=== PATIENT | female | born 1940 | race American Indian/Alaskan Native ===

== ENCOUNTER 2017-05-24 08:14 | Inpatient (IN) | payer MEDICARE ==
--- NOTE | 2017-05-24 09:15 | Cat Scan Report ---
CT HEAD WITHOUT CONTRAST: HISTORY: Neurological deficit. TECHNIQUE: Sequential CT images without contrast. FINDINGS: No comparison. Mild diffuse cortical volume loss and moderate nonspecific chronic white matter changes are identified. There are 2 areas of diminished attenuation concerning for ischemic infarcts. A 1.8 x 1.9 cm area of diminished attenuation is identified in the left occipital lobe on image 35. A similar appearing 1.4 cm area of diminished attenuation is identified in the posterior right cerebellar hemisphere on image 15. These may represent subacute ischemic insults. There is questionable hyperdensity within the basilar artery which could represent partial thrombosis. This could also represent a beam hardening artifact. There is no evidence for hemorrhage or mass. No extra axial fluid collection. Chronic lacunar infarcts in the right thalamus and posterior limb of the right internal capsule are noted. Chronic right sphenoid sinusitis is identified. The remaining sinuses and mastoid air cells are well-aerated. IMPRESSION: Volume loss and chronic white matter changes. Chronic lacunar infarcts in the right thalamus. There are 2 suspicious areas of diminished attenuation in the left occipital lobe and right cerebellar hemisphere concerning for subacute ischemia. No evidence for hemorrhage or obvious mass. These findings were discussed with Dr. Beasley in the emergency department at 0907 hrs.
[2017-05-24 09:20] LABS: Basophils # (Auto) 0.1 K/mm3 (0.0-0.1); Basophils % (Auto) 0.3 % (0.0-1.8); Eosinophils # (Auto) 0.5 K/mm3 (0.0-0.4); Eosinophils % (Auto) 2.5 % (0.0-4.3); Lymphocytes # (Auto) 0.7 K/mm3 (1.2-5.4); Lymphocytes % (Auto) 3.5 % (13.4-35.0); Mean Corpuscular HGB Conc 30 % (30-34); Mean Corpuscular Volume 87 fl (79-97); Monocytes # (Auto) 1.4 K/mm3 (0.0-0.8); Monocytes % (Auto) 7.4 % (0.0-7.3); Platelet Count 146 K/mm3 (140-440); Red Blood Count 3.86 M/mm3 (3.65-5.03)
[2017-05-24 09:30] LABS: Hematocrit 33.5 % (30.3-42.9); Mean Corpuscular Hemoglobin 26 pg (28-32); Red Cell Distribution Width 22.4 % (13.2-15.2)
[2017-05-24 09:31] LABS: INR 1.11 (0.87-1.13)
[2017-05-24 09:32] LABS: Partial Thromboplastin Time 36.1 Sec. (24.2-36.6)
[2017-05-24 09:33] LABS: Calcium 9.3 mg/dL (8.4-10.2)
[2017-05-24 10:08] LABS: Chol/HDL Ratio 2.27 %
[2017-05-24] MEDS ORDERED: KCL 10MEQ/100ML 10 MEQ/100 ML BAG IV ONE (11:12)
--- NOTE | 2017-05-24 11:17 | Emergency Department Report ---
Chief Complaint: Neuro Symptoms/Deficit Stated Complaint: AMS Time Seen by Provider: 05/24/17 09:23 - Exam Vital Signs: Vital Signs 05/24/17 05/24/17 09:07 09:18 Temperature 98.2 F 98.2 F Pulse Rate 101 H 101 H Respiratory 22 22 Rate Blood Pressure 108/38 Blood Pressure 108/32 [Right] O2 Sat by Pulse 96 98 Oximetry MSE screening note: Focused history and physical exam performed. Due to findings the following was ordered: ED Medical Decision Making - Lab Data Result diagrams: 05/24/17 09:04 05/24/17 09:04 - EKG Data EKG shows normal: axis (nl), intervals, QRS complexes, ST-T waves Rate: tachycardia (atrial fib rvr rate 104) - EKG Data Interpretation: other (atrial fib with rvr) ED Disposition for MSE Clinical Impression: CVA (cerebral vascular accident), NSTEMI (non-ST elevated myocardial infarction ) Disposition: -09 OP ADMIT IP TO THIS HOSP Is pt being admited?: Yes Does the pt Need Aspirin: Yes Condition: Serious
--- NOTE | 2017-05-24 11:37 | History and Physical Report ---
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 Pt lethargic and unable to provide history. Pt history taken from ED staff and medical record. Pt was at her baseline last night around 7pm. As per SNF staff, the patient was found to be confused and unable to speak. Pt is now unable to move her right side. Patient seen and evaluated in ED and found to have new onset CVA with RHP. Pt treated IAW stroke protocol. Poor prognosis, No family members listed as Next of Kin for notification. Past History Past Medical History: diabetes, ESRD, hypertension, stroke Past Surgical History: No surgical history, Other (UTO) Social history: single Family history: no significant family history (UTO) Medications and Allergies Allergies Allergy/AdvReac Type Severity Reaction Status Date / Time Unable to Assess Allergy Unverified 05/24/17 08:54 Active Meds: Active Medications Potassium Chloride (Kcl 10meq/100ml) 10 meq in 100 mls @ 100 mls/hr IV ONCE ONE Stop: 05/24/17 12:11 Review of Systems ROS unobtainable: due to mental status Exam - Constitutional Vitals: Temp Pulse Resp BP Pulse Ox 98.2 F 101 H 22 108/32 98 05/24/17 09:18 05/24/17 09:18 05/24/17 09:18 05/24/17 09:18 05/24/17 09:18 General appearance: Present: mild distress - EENT Eyes: Present: PERRL ENT: hearing intact, clear oral mucosa - Neck Neck: Present: supple, normal ROM - Respiratory Respiratory effort: normal Respiratory: bilateral: CTA - Cardiovascular Heart Sounds: Present: S1 & S2. Absent: rub, click - Extremities Extremities: pulses symmetrical, No edema Peripheral Pulses: within normal limits - Abdominal General gastrointestinal: Present: soft, non-tender, non-distended, normal bowel sounds Female genitourinary: Present: normal - Integumentary Integumentary: Present: clear, dry, decreased turgor - Musculoskeletal Musculoskeletal: right sided weakness, left sided weakness - Psychiatric Psychiatric: no intact judgment & insight, no memory intact - Neurologic Neurologic: focal deficits, no moves all extremities, no gait normal Results - Labs CBC & Chem 7: 01/02/18 09:04 05/24/17 09:04 Labs: Abnormal lab results 05/24/17 05/24/17 Range/Units 09:04 09:04 WBC 19.1 H (4.5-11.0) K/mm3 Hgb 10.0 L (10.1-14.3) gm/dl MCH 26 L (28-32) pg RDW 22.4 H (13.2-15.2) % Lymph % (Auto) 3.5 L (13.4-35.0) % [place] % (Auto) 7.4 H (0.0-7.3) % Lymph # 0.7 L (1.2-5.4) K/mm3 [place] # 1.4 H (0.0-0.8) K/mm3 Eos # 0.5 H (0.0-0.4) K/mm3 Seg Neutrophils % 86.3 H (40.0-70.0) % Seg Neutrophils # 16.5 H (1.8-7.7) K/mm3 Potassium 2.7 L* (3.6-5.0) mmol/L Chloride 95.5 L (98-107) mmol/L BUN 55 H (7-17) mg/dL Creatinine 4.3 H (0.7-1.2) mg/dL Glucose 130 H (65-100) mg/dL Troponin T 3.720 H* (0.00-0.029) ng/mL LDL Cholesterol Direct 27 L (50-130) mg/dL HDL Cholesterol 36 L (40-59) mg/dL Assessment and Plan - Patient Problems (1) CVA (cerebral vascular accident) Current Visit: Yes Status: Acute Qualifiers: Laterality of affected vessel: left Plan to address problem: New onset L CVA with RHP: Stroke protocol, CT Head, MRI Brain, MRA Brain, Echo, lipid panel, Carotid Doppler, PT/OT/ Speech therapy, Antiplatelet therapy, Poor prognosis, No family available to discuss code status. (2) HTN (hypertension) Current Visit: Yes Status: Acute Plan to address problem: monitor bp q shift, permissive hypertension overnight (3) Diabetes Current Visit: Yes Status: Acute Plan to address problem: ADA diet when tolerating PO, insulin, accu check, (4) Quadriparesis (muscle weakness) Current Visit: Yes Status: Acute Plan to address problem: PT/OT consulted, secondary to acute and chronic CVA. (5) Encephalopathy Current Visit: Yes Status: Acute Plan to address problem: CT head, IVF resuscitation, neuro checks, supportive care. (6) ESRD (end stage renal disease) Current Visit: Yes Status: Acute Plan to address problem: Nephrology consulted for dialysis, monitor uop q shift, (7) DVT prophylaxis Current Visit: Yes Status: Acute
[2017-05-24] MEDS ORDERED: ASPIRIN PR ONE (11:39)
[2017-05-24] MEDS ORDERED: DULCOLAX PR PRN (11:39)
[2017-05-24] MEDS ORDERED: REGLAN PO PRN (11:39)
[2017-05-24] MEDS ORDERED: ZOFRAN IV PRN (11:39)
[2017-05-24] MEDS ORDERED: MILK OF MAGNESIA PO PRN (11:39)
[2017-05-24] MEDS ORDERED: SODIUM CHLORIDE FLUSH SYRINGE 10 ML IV PRN (11:39)
[2017-05-24] MEDS ORDERED: TYLENOL PO PRN (11:39)
[2017-05-24] MEDS ORDERED: PHENERGAN PR PRN (11:39)
--- NOTE | 2017-05-24 13:06 | Emergency Department Report ---
ED Altered Mental Status HPI - General Chief Complaint: Neuro Symptoms/Deficit Stated Complaint: AMS Time Seen by Provider: 05/24/17 09:23 Source: EMS Mode of arrival: Stretcher Limitations: Altered Mental Status, Physical Limitation - History of Present Illness Initial Comments: Patient is a 77-year-old female who is presenting with altered mental status. Patient has a history of CVA affecting the left side. Patient was last seen well at 7 PM last night according to paramedics. Patient is a residential. Patient noted this morning to be altered as no longer speaking and no longer using her right side. Patient unable to give any additional history because of her altered mental status no other additional history was given to the paramedics to relay to us. MD Complaint: altered mental status, decreased responsiveness Severity: severe Consistency of Symptoms: getting worse - Related Data Allergies Allergy/AdvReac Type Severity Reaction Status Date / Time Unable to Assess Allergy Unverified 05/24/17 08:54 ED Review of Systems ROS: Stated complaint: AMS Other details as noted in HPI Comment: All other systems reviewed and negative ED Past Medical Hx - Past Medical History Previous Medical History?: Yes Hx Hypertension: Yes Hx Diabetes: Yes Additional medical history: ESRD, Major Depressive Disorder, Insomnia, dysphagia , cerebral infarction, cognitive communication deficit, osteomylitis, vascular dementia without behavioral disturbance, - Surgical History Past Surgical History?: No Additional Surgical History: unable to assess at present - Social History Smoking Status: Unknown if ever smoked ED Physical Exam - General Limitations: Altered Mental Status, Physical Limitation General appearance: alert - Head Head exam: Present: atraumatic - Eye Eye exam: Present: normal appearance - ENT ENT exam: Present: normal exam - Neck Neck exam: Present: normal inspection - Respiratory Respiratory exam: Present: normal lung sounds bilaterally. Absent: respiratory distress, wheezes, rales, rhonchi, stridor - Cardiovascular Cardiovascular Exam: Present: regular rate, normal rhythm - GI/Abdominal GI/Abdominal exam: Present: soft. 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 Level of Consciousness: alert - LOC Questions 1b. LOC Questions: answers no questions correctly - LOC Command 1c. LOC Commands: performs no tasks correctly - Best Gaze 2. Best Gaze: normal - Visual 3. Visual: no visual loss - Facial Palsy 4. Facial Palsy: partial paralysis - Motor Arm 5b. Motor Arm Right: no gravity effort 5a. Motor Arm Left: no gravity effort - Motor Leg 6a. Motor Leg Left: no gravity effort 6b. Motor Leg Right: no gravity effort - Limb Ataxia 7. Limb Ataxia: absent - Sensory 8. Sensory: mild/moderate sensory loss - Best Language 9. Best Language: mute/global aphasia - Dysarthria 10. Dysarthria: severe dysarthria - Extinction and Inattention 11. Extinction/Inattention: no abnormality ED Course Vital Signs 05/24/17 05/24/17 05/24/17 09:07 09:18 12:38 Temperature 98.2 F 98.2 F Pulse Rate 101 H 101 H Respiratory 22 22 13 Rate Blood Pressure 108/38 Blood Pressure 108/32 [Right] O2 Sat by Pulse 96 98 Oximetry - Lab Data Result diagrams: 05/24/17 09:04 05/24/17 09:04 Lab Results 05/24/17 05/24/17 05/24/17 Range/Units 09:04 09:04 09:04 WBC 19.1 H (4.5-11.0) K/mm3 RBC 3.86 (3.65-5.03) M/mm3 Hgb 10.0 L (10.1-14.3) gm/dl Hct 33.5 (30.3-42.9) % MCV 87 (79-97) fl MCH 26 L (28-32) pg MCHC 30 (30-34) % RDW 22.4 H (13.2-15.2) % Plt Count 146 (140-440) K/mm3 Lymph % (Auto) 3.5 L (13.4-35.0) % [place] % (Auto) 7.4 H (0.0-7.3) % Eos % (Auto) 2.5 (0.0-4.3) % Baso % (Auto) 0.3 (0.0-1.8) % Lymph # 0.7 L (1.2-5.4) K/mm3 [place] # 1.4 H (0.0-0.8) K/mm3 Eos # 0.5 H (0.0-0.4) K/mm3 Baso # 0.1 (0.0-0.1) K/mm3 Seg Neutrophils % 86.3 H (40.0-70.0) % Seg Neutrophils # 16.5 H (1.8-7.7) K/mm3 PT 14.9 (12.2-14.9) Sec. INR 1.11 (0.87-1.13) APTT 36.1 (24.2-36.6) Sec. Thrombin Time (15.1-19.6) Sec. Sodium 139 (137-145) mmol/L Potassium 2.7 L* (3.6-5.0) mmol/L Chloride 95.5 L (98-107) mmol/L Carbon Dioxide 22 (22-30) mmol/L Anion Gap 24 mmol/L BUN 55 H (7-17) mg/dL Creatinine 4.3 H (0.7-1.2) mg/dL Estimated GFR 10 ml/min BUN/Creatinine Ratio 13 % Glucose 130 H (65-100) mg/dL Calcium 9.3 (8.4-10.2) mg/dL Troponin T 3.720 H* (0.00-0.029) ng/mL Triglycerides 95 (2-149) mg/dL Cholesterol 82 (50-199) mg/dL LDL Cholesterol Direct 27 L (50-130) mg/dL HDL Cholesterol 36 L (40-59) mg/dL Cholesterol/HDL Ratio 2.27 % 05/24/17 Range/Units 09:04 WBC (4.5-11.0) K/mm3 RBC (3.65-5.03) M/mm3 Hgb (10.1-14.3) gm/dl Hct (30.3-42.9) % MCV (79-97) fl MCH (28-32) pg MCHC (30-34) % RDW (13.2-15.2) % Plt Count (140-440) K/mm3 Lymph % (Auto) (13.4-35.0) % [place] % (Auto) (0.0-7.3) % Eos % (Auto) (0.0-4.3) % Baso % (Auto) (0.0-1.8) % Lymph # (1.2-5.4) K/mm3 [place] # (0.0-0.8) K/mm3 Eos # (0.0-0.4) K/mm3 Baso # (0.0-0.1) K/mm3 Seg Neutrophils % (40.0-70.0) % Seg Neutrophils # (1.8-7.7) K/mm3 PT (12.2-14.9) Sec. INR (0.87-1.13) APTT (24.2-36.6) Sec. Thrombin Time 16.5 (15.1-19.6) Sec. Sodium (137-145) mmol/L Potassium (3.6-5.0) mmol/L Chloride (98-107) mmol/L Carbon Dioxide (22-30) mmol/L Anion Gap mmol/L BUN (7-17) mg/dL Creatinine (0.7-1.2) mg/dL Estimated GFR ml/min BUN/Creatinine Ratio % Glucose (65-100) mg/dL Calcium (8.4-10.2) mg/dL Troponin T (0.00-0.029) ng/mL Triglycerides (2-149) mg/dL Cholesterol (50-199) mg/dL LDL Cholesterol Direct (50-130) mg/dL HDL Cholesterol (40-59) mg/dL Cholesterol/HDL Ratio % - EKG Data -: EKG Interpreted by Id EKG shows normal: axis, intervals, QRS complexes, ST-T waves Interpretation: other (patient appears to be in atrial fibrillation with a rate of 104) - Radiology Data Radiology results: report reviewed - Medical Decision Making Patient is a 77-year-old female who is presenting status post stroke. There are several areas of subacute ischemia seen on her CT. Patient will be admitted to Dr. Muñoz the internal medicine service Critical care attestation.: If time is entered above; I have spent that time in minutes in the direct care of this critically ill patient, excluding procedure time. ED Disposition Clinical Impression: CVA (cerebral vascular accident) Disposition: OP ADMIT IP TO THIS HOSP Is pt being admited?: Yes Does the pt Need Aspirin: Yes Condition: Serious
[2017-05-24] MEDS ORDERED: NACL 0.9% 1000 ML 1,000 ML IV ONE (14:36)
[2017-05-24] MEDS ORDERED: BENADRYL IV ONE ×2 (20:53→23:08)
[2017-05-25 10:04] LABS: Eosinophils # (Auto) 0.9 K/mm3 (0.0-0.4); Eosinophils % (Auto) 4.6 % (0.0-4.3); Monocytes # (Auto) 1.4 K/mm3 (0.0-0.8)
[2017-05-25 10:13] LABS: Basophils % (Auto) 0.2 % (0.0-1.8); Hematocrit 34.2 % (30.3-42.9); Hemoglobin 10.2 gm/dl (10.1-14.3); Lymphocytes # (Auto) 0.7 K/mm3 (1.2-5.4); Lymphocytes % (Auto) 3.4 % (13.4-35.0); Mean Corpuscular HGB Conc 30 % (30-34); Mean Corpuscular Hemoglobin 26 pg (28-32); Mean Corpuscular Volume 87 fl (79-97); Red Blood Count 3.91 M/mm3 (3.65-5.03); Red Cell Distribution Width 22.7 % (13.2-15.2)
[2017-05-25 10:23] LABS: Calcium 9.3 mg/dL (8.4-10.2)
[2017-05-25 11:24] LABS: Platelet Count 134 K/mm3 (140-440)
--- NOTE | 2017-05-25 12:24 | Consultation ---
History of Present Illness Consult date: 05/25/17 Requesting physician: KHRIS EDMOND Consult reason: elevated troponin History of present illness: The history was obtained from the medical record as the patient is non-verbal and unable to give any history at this time. The patient is a 77 year old female with a history of HTN, DM, CVA with left hemiparesis, ESRD on HD, dementia who presented from her SNF for evaluation of altered mental status. Pt. was at her baseline last night around 7pm. As per SNF staff, the patient was found to be confused and unable to speak. Pt is now unable to move her right side. Head CT concerning for subacute ischemia. Troponin level is 3.720, 4.500. Echo done 02/2017 showed EF 55-60%, impaired relaxation, mild to moderate TR, RVSP 47mmHg. Past History Past Medical History: diabetes, ESRD, hypertension, stroke Past Surgical History: No surgical history, Other (UTO) Social history: single Family history: no significant family history (UTO) Medications and Allergies Allergies Allergy/AdvReac Type Severity Reaction Status Date / Time Penicillins Allergy Unknown Unknown Verified 05/24/17 20:29 Home Medications Medication Instructions Recorded Confirmed Last Taken Type Acetaminophen/Codeine [Tylenol 1 mg PO Q4H PRN 05/24/17 05/24/17 Unknown History /Codeine # 3 tab] AtorvaSTATin [Lipitor] 40 mg PO QHS 05/24/17 05/24/17 Unknown History Clopidogrel Bisulfate [Plavix] 75 mg PO DAILY 05/24/17 05/24/17 Unknown History Collagenase [Santyl] 1 mg TP DAILY 05/24/17 05/24/17 Unknown History Dextrose [Glucose Gel] 38 gm PO PRN PRN 05/24/17 05/24/17 Unknown History Docusate Sodium [Colace Clear] 100 mg PO BID 05/24/17 05/24/17 Unknown History Folic Acid/Vit B Complex and C 0.8 mg PO DAILY 05/24/17 05/24/17 Unknown History [Renal Vitamin Tablet] Glucagon,Human Recombinant 1 mg SUB-Q PRN 05/24/17 05/24/17 Unknown History [Glucagon Emergency Kit] Lactulose [Lactulose] 20 mg PO PRN PRN 05/24/17 05/24/17 Unknown History Metoprolol Xl [Metoprolol 50 mg PO QDAY 05/24/17 05/24/17 Unknown History SUCCINATE ER TAB] Pregabalin [Lyrica] 100 mg PO BID 05/24/17 05/24/17 Unknown History Tylenol Extra Strength 1,000 mg PO Q6HR PRN 05/24/17 05/24/17 Unknown History hydrALAZINE [Apresoline] 50 mg PO DAILY 05/24/17 05/24/17 Unknown History Active Meds: Active Medications Acetaminophen (Tylenol) 650 mg PO Q4H PRN PRN Reason: Pain, Mild (1-3) Aspirin (Aspirin) 325 mg PO QDAY LEE Bisacodyl (Dulcolax) 10 mg RI QDAY PRN PRN Reason: Constipation Magnesium Hydroxide (Milk Of Magnesia) 30 ml PO Q4H PRN PRN Reason: Constipation Metoclopramide HCl (Reglan) 10 mg PO Q6H PRN PRN Reason: Nausea And Vomiting Ondansetron HCl (Zofran) 4 mg IV Q8H PRN PRN Reason: N/V unrelieved by Reglan Promethazine HCl (Phenergan) 25 mg RI Q6H PRN PRN Reason: Nausea And Vomiting Sodium Chloride (Sodium Chloride Flush Syringe 10 Ml) 10 ml IV PRN PRN PRN Reason: LINE FLUSH Review of Systems ROS unobtainable: due to mental status Physical Examination Vital Signs Temp Pulse Resp BP Pulse Ox 98.2 F 101 H 22 108/38 96 05/24/17 09:07 05/24/17 09:07 05/24/17 09:07 05/24/17 09:07 05/24/17 09:07 General appearance: no acute distress (non-verbal, left hemiplegia) HEENT: Positive: Normocephaly, Mucus Membranes Moist Neck: Positive: neck supple, trachea midline Cardiac: Positive: Reg Rate and Rhythm, S1/S2 Lungs: Positive: clear to auscultation Neuro: Positive: Grossly Intact, Other (lrft hemiplegia, non-verbal) Abdomen: Positive: Soft, Active Bowel Sounds Skin: Positive: Clear. Negative: Rash Extremities: Present: normal. Absent: edema Results 05/25/17 09:38 05/25/17 09:38 CBC 05/25/17 Range/Units 09:38 WBC 19.4 H (4.5-11.0) K/mm3 RBC 3.91 (3.65-5.03) M/mm3 Hgb 10.2 (10.1-14.3) gm/dl Hct 34.2 (30.3-42.9) % Plt Count 134 L (140-440) K/mm3 Lymph # 0.7 L (1.2-5.4) K/mm3 [place] # 1.4 H (0.0-0.8) K/mm3 Eos # 0.9 H (0.0-0.4) K/mm3 Baso # 0.0 (0.0-0.1) K/mm3 Comprehensive Metabolic Panel 05/25/17 Range/Units 09:38 Sodium 144 (137-145) mmol/L Potassium 3.2 L (3.6-5.0) mmol/L Chloride 98.6 (98-107) mmol/L Carbon Dioxide 19 L (22-30) mmol/L BUN 69 H (7-17) mg/dL Creatinine 4.8 H (0.7-1.2) mg/dL Glucose 76 (65-100) mg/dL Calcium 9.3 (8.4-10.2) mg/dL - Imaging and Cardiology Echo: report reviewed (02/2017 showed EF 55-60%, impaired relaxation, mild to moderate TR, RVSP 47mmHg) EKG: image reviewed EKG interpretations - Telemetry EKG Rhythm: Sinus Rhythm - EKG Sinus rhythms and dysrhythmias: sinus rhythm Assessment and Plan Assessment: Acute CVA Elevated troponin Hypertension Hyperlipidemia Diabetes ESRD on HD Plan: Recommend neurology evaluation. Would recommend IV heparin infusion for 48 hours if and when okay from a neurological standpoint. Echo done 02/2017 showed EF 55-60%, impaired relaxation, mild to moderate TR, RVSP 47mmHg. Sinus rhythm on the monitor. Due to her current status and multiple co-morbid conditions the patient is not a candidate for invasive cardiac management. The patient has been seen in conjunction with Dr. Burton who agrees with the assessment and plan of care.
--- NOTE | 2017-05-25 12:52 | Progress Note ---
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 Cerebral vascular accident CT of the head shows right cerebellar hemisphere concerning for subacute ischemia and 2 suspicious area diminished attenuation in the left occipital lobe. MRI of the brain pending VL carotid no stenosis. Echocardiogram pending Continue on aspirin Continue on statins Frequent neuro checks. Neurology consult Physical therapy/occupational therapy on board. Supportive care Encephalopathy Most likely due to acute and chronic CVA CT of the head shows right cerebellar hemisphere concerning for subacute ischemia and 2 suspicious area diminished attenuation in the left occipital lobe. Supportive care Hypertensive urgency/emergency Continue home antihypertensive medication. Gently IV hydralazine for SBP> 160 Closely monitor blood pressure Diabetes mellitus Accu-Chek before meals and at bedtime works on sliding scale insulin/Novolog Quadriparesis (muscle weakness) Secondary to acute and chronic CVA. Physical therapy/occupational therapy on board. End stage renal disease Nephrology consulted for dialysis Hyperlipidemia Continue on antilipid agents DVT prophylaxis Lovenox History Interval history: Patient confused alert oriented to self.Nursing notes reviewed. Hospitalist Physical - Physical exam Narrative exam: Patient confused alert oriented to self. - Constitutional Vitals: Temp Pulse Resp BP Pulse Ox 98.4 F 94 H 20 139/60 98 05/25/17 05:04 05/25/17 05:04 05/25/17 05:35 05/25/17 05:04 05/25/17 05:04 General appearance: Present: mild distress, other (confused) - EENT Eyes: Present: PERRL - Neck Neck: Present: supple - Respiratory Respiratory effort: normal Respiratory: bilateral: CTA - Cardiovascular Rhythm: regular Heart Sounds: Present: S1 & S2 - Extremities Extremity abnormal: other (left upper arm contracture) - Abdominal General gastrointestinal: soft, non-tender - Integumentary Integumentary: Present: clear, warm, dry - Psychiatric Psychiatric: other (impaired judgment) - Neurologic Neurologic: other (left upper arm contracture and Quadriparesis muscle weakness. ) - Allied Health Allied health notes reviewed: nursing Results - Labs CBC & Chem 7: 05/25/17 09:38 05/25/17 09:38 Labs: Laboratory Last Values WBC 19.4 K/mm3 (4.5-11.0) H 05/25/17 09:38 RBC 3.91 M/mm3 (3.65-5.03) 05/25/17 09:38 Hgb 10.2 gm/dl (10.1-14.3) 05/25/17 09:38 Hct 34.2 % (30.3-42.9) 05/25/17 09:38 MCV 87 fl (79-97) 05/25/17 09:38 MCH 26 pg (28-32) L 05/25/17 09:38 MCHC 30 % (30-34) 05/25/17 09:38 RDW 22.7 % (13.2-15.2) H 05/25/17 09:38 Plt Count 134 K/mm3 (140-440) L 05/25/17 09:38 Lymph % (Auto) 3.4 % (13.4-35.0) L 05/25/17 09:38 [place] % (Auto) 7.0 % (0.0-7.3) 05/25/17 09:38 Eos % (Auto) 4.6 % (0.0-4.3) H 05/25/17 09:38 Baso % (Auto) 0.2 % (0.0-1.8) 05/25/17 09:38 Lymph # 0.7 K/mm3 (1.2-5.4) L 05/25/17 09:38 [place] # 1.4 K/mm3 (0.0-0.8) H 05/25/17 09:38 Eos # 0.9 K/mm3 (0.0-0.4) H 05/25/17 09:38 Baso # 0.0 K/mm3 (0.0-0.1) 05/25/17 09:38 Seg Neutrophils % 84.8 % (40.0-70.0) H 05/25/17 09:38 Seg Neutrophils # 16.4 K/mm3 (1.8-7.7) H 05/25/17 09:38 PT 14.9 Sec. (12.2-14.9) 05/24/17 09:04 INR 1.11 (0.87-1.13) 05/24/17 09:04 APTT 36.1 Sec. (24.2-36.6) 05/24/17 09:04 Thrombin Time 16.5 Sec. (15.1-19.6) 05/24/17 09:04 Sodium 144 mmol/L (137-145) 05/25/17 09:38 Potassium 3.2 mmol/L (3.6-5.0) L 05/25/17 09:38 Chloride 98.6 mmol/L (98-107) 05/25/17 09:38 Carbon Dioxide 19 mmol/L (22-30) L 05/25/17 09:38 Anion Gap 30 mmol/L 05/25/17 09:38 BUN 69 mg/dL (7-17) H 05/25/17 09:38 Creatinine 4.8 mg/dL (0.7-1.2) H 05/25/17 09:38 Estimated GFR 11 ml/min 05/25/17 09:38 BUN/Creatinine Ratio 14 % 05/25/17 09:38 Glucose 76 mg/dL (65-100) 05/25/17 09:38 POC Glucose 74 (70-105) 05/25/17 08:12 Calcium 9.3 mg/dL (8.4-10.2) 05/25/17 09:38 Troponin T 4.500 ng/mL (0.00-0.029) H* D 05/25/17 09:38 Triglycerides 95 mg/dL (2-149) 05/24/17 09:04 Cholesterol 82 mg/dL (50-199) 05/24/17 09:04 LDL Cholesterol Direct 27 mg/dL (50-130) L 05/24/17 09:04 HDL Cholesterol 36 mg/dL (40-59) L 05/24/17 09:04 Cholesterol/HDL Ratio 2.27 % 05/24/17 09:04 <SRI REED R - Last Filed: 05/25/17 14:29> Assessment and Plan Assessment and plan: I saw and evaluated the patient. I agree with the findings and the plan of care as documented in the Nurse Practitioner Hospitalist Physical - Constitutional Vitals: Temp Pulse Resp BP Pulse Ox 98.4 F 94 H 20 139/60 98 05/25/17 05:04 05/25/17 05:04 05/25/17 05:35 05/25/17 05:04 05/25/17 05:04 Results - Labs CBC & Chem 7: 05/25/17 09:38 05/25/17 09:38 Labs: Laboratory Last Values WBC 19.4 K/mm3 (4.5-11.0) H 05/25/17 09:38 RBC 3.91 M/mm3 (3.65-5.03) 05/25/17 09:38 Hgb 10.2 gm/dl (10.1-14.3) 05/25/17 09:38 Hct 34.2 % (30.3-42.9) 05/25/17 09:38 MCV 87 fl (79-97) 05/25/17 09:38 MCH 26 pg (28-32) L 05/25/17 09:38 MCHC 30 % (30-34) 05/25/17 09:38 RDW 22.7 % (13.2-15.2) H 05/25/17 09:38 Plt Count 134 K/mm3 (140-440) L 05/25/17 09:38 Lymph % (Auto) 3.4 % (13.4-35.0) L 05/25/17 09:38 Titus % (Auto) 7.0 % (0.0-7.3) 05/25/17 09:38 Eos % (Auto) 4.6 % (0.0-4.3) H 05/25/17 09:38 Baso % (Auto) 0.2 % (0.0-1.8) 05/25/17 09:38 Lymph # 0.7 K/mm3 (1.2-5.4) L 05/25/17 09:38 [place] # 1.4 K/mm3 (0.0-0.8) H 05/25/17 09:38 Eos # 0.9 K/mm3 (0.0-0.4) H 05/25/17 09:38 Baso # 0.0 K/mm3 (0.0-0.1) 05/25/17 09:38 Seg Neutrophils % 84.8 % (40.0-70.0) H 05/25/17 09:38 Seg Neutrophils # 16.4 K/mm3 (1.8-7.7) H 05/25/17 09:38 PT 14.9 Sec. (12.2-14.9) 05/24/17 09:04 INR 1.11 (0.87-1.13) 05/24/17 09:04 APTT 36.1 Sec. (24.2-36.6) 05/24/17 09:04 Thrombin Time 16.5 Sec. (15.1-19.6) 05/24/17 09:04 Sodium 144 mmol/L (137-145) 05/25/17 09:38 Potassium 3.2 mmol/L (3.6-5.0) L 05/25/17 09:38 Chloride 98.6 mmol/L (98-107) 05/25/17 09:38 Carbon Dioxide 19 mmol/L (22-30) L 05/25/17 09:38 Anion Gap 30 mmol/L 05/25/17 09:38 BUN 69 mg/dL (7-17) H 05/25/17 09:38 Creatinine 4.8 mg/dL (0.7-1.2) H 05/25/17 09:38 Estimated GFR 11 ml/min 05/25/17 09:38 BUN/Creatinine Ratio 14 % 05/25/17 09:38 Glucose 76 mg/dL (65-100) 05/25/17 09:38 POC Glucose 74 (70-105) 05/25/17 08:12 Calcium 9.3 mg/dL (8.4-10.2) 05/25/17 09:38 Troponin T 4.500 ng/mL (0.00-0.029) H* D 05/25/17 09:38 Triglycerides 95 mg/dL (2-149) 05/24/17 09:04 Cholesterol 82 mg/dL (50-199) 05/24/17 09:04 LDL Cholesterol Direct 27 mg/dL (50-130) L 05/24/17 09:04 HDL Cholesterol 36 mg/dL (40-59) L 05/24/17 09:04 Cholesterol/HDL Ratio 2.27 % 05/24/17 09:04
[2017-05-25] MEDS ORDERED: K-DUR PO ONE (14:00)
--- NOTE | 2017-05-25 14:33 | Magnetic Resonance Report ---
MRI of the brain without contrast. History: Stroke. Procedure: Routine brain protocol without contrast. Findings: There are bilateral areas of restricted diffusion. There is an area of restricted diffusion in the medial aspect of the right cerebellar hemisphere measuring approximately 2.2 cm in maximum dimension. An area of restricted diffusion is seen in the left occipital lobe measuring approximately 1.9 cm in diameter. An area restricted diffusion is seen in the left posterior parietal lobe at the cortical margin measuring 2.37 m in diameter. Several additional subcentimeter foci of restricted diffusion are seen in the left high parietal lobe. 2 areas of restricted diffusion are seen in the right hemisphere, the larger of the 2 in the anterior right parietal lobe. A subcentimeter focus of streaky diffusion is seen in the right occipital lobe. These areas demonstrate hyperintense T2 signal/edema, but no mass effect. There are areas of hyperintense T2 signal in the periventricular white matter bilaterally. No masses or extra-axial collections are seen. Chronic ischemic changes are seen in the brainstem bilaterally. The pituitary is unremarkable. The visualized extracranial structures are normal. Impression: Multiple bilateral areas of subacute/acute infarcts as detailed above. Chronic microangiopathic ischemic changes in the periventricular white matter are noted. Comment: Code purple. These findings were given to the patient's nurse Camille at 2:20 PM on May 25, 2017.
[2017-05-25] MEDS: ASPIRIN PO SCH (14:45)
[2017-05-25] MEDS: KCL 10MEQ/100ML 10 MEQ/100 ML BAG IV SCH ×2 (16:45→18:23)
[2017-05-26 06:33] LABS: Basophils # (Auto) 0.1 K/mm3 (0.0-0.1); Basophils % (Auto) 0.4 % (0.0-1.8); Eosinophils # (Auto) 0.9 K/mm3 (0.0-0.4); Eosinophils % (Auto) 6.6 % (0.0-4.3); Hematocrit 31.2 % (30.3-42.9); Hemoglobin 9.5 gm/dl (10.1-14.3); Lymphocytes # (Auto) 0.4 K/mm3 (1.2-5.4); Lymphocytes % (Auto) 3.1 % (13.4-35.0); Mean Corpuscular HGB Conc 31 % (30-34); Mean Corpuscular Hemoglobin 27 pg (28-32); Mean Corpuscular Volume 87 fl (79-97); Monocytes # (Auto) 1.1 K/mm3 (0.0-0.8); Platelet Count 138 K/mm3 (140-440)
[2017-05-26 06:43] LABS: Red Cell Distribution Width 21.8 % (13.2-15.2)
[2017-05-26 06:52] LABS: Calcium 8.5 mg/dL (8.4-10.2)
--- NOTE | 2017-05-26 08:13 | Magnetic Resonance Report ---
MRA HEAD WITHOUT CONTRAST: 05/24/17 11:39:00 CLINICAL: Stroke. TECHNIQUE: Axial 3-D [id number] MR angiography of the [place] with review of axial source images. FINDINGS: Intact [place] with no aneurysm or occlusion. Symmetric blood flow in the anterior and middle cerebral arteries. Right INSULATION BLANKET MAKER stenoses and a high-grade grade stenosis or occlusion of the left posterior cerebral artery near its origin. High-grade stenosis of the proximal left superior cerebellar artery. Normal basilar and vertebral arteries. IMPRESSION: Abnormal posterior circulation as described above.
[2017-05-26] MEDS ORDERED: D50W (25GM) Syringe IV PRN (08:36)
--- NOTE | 2017-05-26 09:11 | Progress Note ---
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 Cerebral vascular accident CT of the head shows right cerebellar hemisphere concerning for subacute ischemia and 2 suspicious area diminished attenuation in the left occipital lobe. MRI of the brain revealed multiple bilateral areas of subacute/acute infarcts. VL carotid no stenosis. Echocardiogram 02/2017 showed EF 55-60%, impaired relaxation. Continue on aspirin Continue on statins Frequent neuro checks. Neurology consult Physical therapy/occupational therapy on board. Supportive care Encephalopathy Most likely due to acute and chronic CVA CT of the head shows right cerebellar hemisphere concerning for subacute ischemia and 2 suspicious area diminished attenuation in the left occipital lobe. Supportive care Elevated Troponin Cardiology consult 02/2017 showed EF 55-60%, impaired relaxation Due to Multiple co-morbid conditions the patient is not a candidate for invasive cardiac management per cardiology Hypertensive urgency/emergency Continue home antihypertensive medication. Gently IV hydralazine for SBP> 160 Closely monitor blood pressure Diabetes mellitus Accu-Chek before meals and at bedtime works on sliding scale insulin/Novolog Quadriparesis (muscle weakness) Secondary to acute and chronic CVA. Physical therapy/occupational therapy on board. End stage renal disease Nephrology consulted for dialysis Hyperlipidemia Continue on antilipid agents DVT prophylaxis Lovenox History Interval history: Patient confused alert oriented to self. Labs and nursing notes reviewed. Hospitalist Physical - Physical exam Narrative exam: Alert oriented to self - Constitutional Vitals: Temp Pulse Resp BP Pulse Ox 98.5 F 107 H 20 135/52 96 05/26/17 06:06 05/26/17 08:57 05/26/17 06:06 05/26/17 06:06 05/26/17 06:06 General appearance: Present: no acute distress (non-verbal, left hemiplegia), other (confused ) - EENT Eyes: Present: PERRL - Neck Neck: Present: supple - Respiratory Respiratory effort: normal Respiratory: bilateral: CTA - Cardiovascular Rhythm: regular Heart Sounds: Present: S1 & S2 - Extremities Extremity abnormal: other (left upper arm contracture ) - Abdominal General gastrointestinal: soft, non-tender - Integumentary Integumentary: Present: clear, warm, dry - Psychiatric Psychiatric: other (impaired judgment) - Neurologic Neurologic: other (left upper arm contracture and Quadriparesis muscle weakness. ) - Allied Health Allied health notes reviewed: nursing Results - Labs CBC & Chem 7: 05/26/17 05:39 05/26/17 05:39 Labs: Laboratory Last Values WBC 13.7 K/mm3 (4.5-11.0) H 05/26/17 05:39 RBC 3.60 M/mm3 (3.65-5.03) L 05/26/17 05:39 Hgb 9.5 gm/dl (10.1-14.3) L 05/26/17 05:39 Hct 31.2 % (30.3-42.9) 05/26/17 05:39 MCV 87 fl (79-97) 05/26/17 05:39 MCH 27 pg (28-32) L 05/26/17 05:39 MCHC 31 % (30-34) 05/26/17 05:39 RDW 21.8 % (13.2-15.2) H 05/26/17 05:39 Plt Count 138 K/mm3 (140-440) L 05/26/17 05:39 Lymph % (Auto) 3.1 % (13.4-35.0) L 05/26/17 05:39 [place] % (Auto) 8.0 % (0.0-7.3) H 05/26/17 05:39 Eos % (Auto) 6.6 % (0.0-4.3) H 05/26/17 05:39 Baso % (Auto) 0.4 % (0.0-1.8) 05/26/17 05:39 Lymph # 0.4 K/mm3 (1.2-5.4) L 05/26/17 05:39 [place] # 1.1 K/mm3 (0.0-0.8) H 05/26/17 05:39 Eos # 0.9 K/mm3 (0.0-0.4) H 05/26/17 05:39 Baso # 0.1 K/mm3 (0.0-0.1) 05/26/17 05:39 Seg Neutrophils % 81.9 % (40.0-70.0) H 05/26/17 05:39 Seg Neutrophils # 11.2 K/mm3 (1.8-7.7) H 05/26/17 05:39 PT 14.9 Sec. (12.2-14.9) 05/24/17 09:04 INR 1.11 (0.87-1.13) 05/24/17 09:04 APTT 36.1 Sec. (24.2-36.6) 05/24/17 09:04 Thrombin Time 16.5 Sec. (15.1-19.6) 05/24/17 09:04 Sodium 144 mmol/L (137-145) 05/26/17 05:39 Potassium 3.5 mmol/L (3.6-5.0) L 05/26/17 05:39 Chloride 100.3 mmol/L (98-107) 05/26/17 05:39 Carbon Dioxide 17 mmol/L (22-30) L 05/26/17 05:39 Anion Gap 30 mmol/L 05/26/17 05:39 BUN 77 mg/dL (7-17) H 05/26/17 05:39 Creatinine 6.2 mg/dL (0.7-1.2) H 05/26/17 05:39 Estimated GFR 8 ml/min 05/26/17 05:39 BUN/Creatinine Ratio 12 % 05/26/17 05:39 Glucose 95 mg/dL (65-100) 05/26/17 05:39 POC Glucose 110 (70-105) H 05/26/17 07:08 Calcium 8.5 mg/dL (8.4-10.2) 05/26/17 05:39 Troponin T 4.590 ng/mL (0.00-0.029) H* 05/25/17 13:49 Triglycerides 95 mg/dL (2-149) 05/24/17 09:04 Cholesterol 82 mg/dL (50-199) 05/24/17 09:04 LDL Cholesterol Direct 27 mg/dL (50-130) L 05/24/17 09:04 HDL Cholesterol 36 mg/dL (40-59) L 05/24/17 09:04 Cholesterol/HDL Ratio 2.27 % 05/24/17 09:04 <SRI REED R - Last Filed: 05/26/17 15:16> Assessment and Plan Assessment and plan: I saw and evaluated the patient. I agree with the findings and the plan of care as documented in the Nurse Practitioner's D/W son Kaushal King [phone] Abdelrahman Chávez, other son is estranged per Kaushal and is not in contact with patient, he is possible in [place] We discuss the need for PEG tube, he is ok with peg tube Hospitalist Physical - Constitutional Vitals: Temp Pulse Resp BP Pulse Ox 98.0 F 116 H 16 132/47 100 05/26/17 11:39 05/26/17 11:39 05/26/17 11:39 05/26/17 11:39 05/26/17 11:39 Results - Labs CBC & Chem 7: 05/26/17 05:39 05/26/17 05:39 Labs: Laboratory Last Values WBC 13.7 K/mm3 (4.5-11.0) H 05/26/17 05:39 RBC 3.60 M/mm3 (3.65-5.03) L 05/26/17 05:39 Hgb 9.5 gm/dl (10.1-14.3) L 05/26/17 05:39 Hct 31.2 % (30.3-42.9) 05/26/17 05:39 MCV 87 fl (79-97) 05/26/17 05:39 MCH 27 pg (28-32) L 05/26/17 05:39 MCHC 31 % (30-34) 05/26/17 05:39 RDW 21.8 % (13.2-15.2) H 05/26/17 05:39 Plt Count 138 K/mm3 (140-440) L 05/26/17 05:39 Lymph % (Auto) 3.1 % (13.4-35.0) L 05/26/17 05:39 [place] % (Auto) 8.0 % (0.0-7.3) H 05/26/17 05:39 Eos % (Auto) 6.6 % (0.0-4.3) H 05/26/17 05:39 Baso % (Auto) 0.4 % (0.0-1.8) 05/26/17 05:39 Lymph # 0.4 K/mm3 (1.2-5.4) L 05/26/17 05:39 [place] # 1.1 K/mm3 (0.0-0.8) H 05/26/17 05:39 Eos # 0.9 K/mm3 (0.0-0.4) H 05/26/17 05:39 Baso # 0.1 K/mm3 (0.0-0.1) 05/26/17 05:39 Seg Neutrophils % 81.9 % (40.0-70.0) H 05/26/17 05:39 Seg Neutrophils # 11.2 K/mm3 (1.8-7.7) H 05/26/17 05:39 PT 14.9 Sec. (12.2-14.9) 05/24/17 09:04 INR 1.11 (0.87-1.13) 05/24/17 09:04 APTT 36.1 Sec. (24.2-36.6) 05/24/17 09:04 Thrombin Time 16.5 Sec. (15.1-19.6) 05/24/17 09:04 Sodium 144 mmol/L (137-145) 05/26/17 05:39 Potassium 3.5 mmol/L (3.6-5.0) L 05/26/17 05:39 Chloride 100.3 mmol/L (98-107) 05/26/17 05:39 Carbon Dioxide 17 mmol/L (22-30) L 05/26/17 05:39 Anion Gap 30 mmol/L 05/26/17 05:39 BUN 77 mg/dL (7-17) H 05/26/17 05:39 Creatinine 6.2 mg/dL (0.7-1.2) H 05/26/17 05:39 Estimated GFR 8 ml/min 05/26/17 05:39 BUN/Creatinine Ratio 12 % 05/26/17 05:39 Glucose 95 mg/dL (65-100) 05/26/17 05:39 POC Glucose 101 (70-105) 05/26/17 11:47 Calcium 8.5 mg/dL (8.4-10.2) 05/26/17 05:39 Troponin T 4.590 ng/mL (0.00-0.029) H* 05/25/17 13:49 Triglycerides 95 mg/dL (2-149) 05/24/17 09:04 Cholesterol 82 mg/dL (50-199) 05/24/17 09:04 LDL Cholesterol Direct 27 mg/dL (50-130) L 05/24/17 09:04 HDL Cholesterol 36 mg/dL (40-59) L 05/24/17 09:04 Cholesterol/HDL Ratio 2.27 % 05/24/17 09:04
[2017-05-26] MEDS: ASPIRIN PO SCH (10:45)
[2017-05-26] MEDS: NOVOLOG SUB-Q SCH ×3 (11:12→23:26)
--- NOTE | 2017-05-26 11:45 | Progress Note ---
Assessment and Plan Assessment: Acute CVA Elevated troponin Hypertension Hyperlipidemia Diabetes ESRD on HD Plan: Await neurology recommendations. Patient is now out of the time frame of medical treatment of NSTEMI with heparin infusion. Due to her current status and multiple co-morbid conditions the patient is not a candidate for invasive cardiac management. The patient has been seen in conjunction with Dr. Burton who agrees with the assessment and plan of care. Subjective Date of service: 05/26/17 Principal diagnosis: elevated troponin Interval history: The patient is resting in bed. Arousable but no verbal response. Sinus tach on the monitor. Objective Last Vital Signs Temp 98.5 F 05/26/17 06:06 Pulse 107 H 05/26/17 08:57 Resp 20 05/26/17 06:06 BP 135/52 05/26/17 06:06 Pulse Ox 96 05/26/17 06:06 - Physical Examination General: No Apparent Distress HEENT: Positive: Normocephaly, Mucus Membranes Moist Neck: Positive: neck supple, trachea midline Cardiac: Positive: Regular Rhythm, S1/S2, Tachycardia Lungs: Positive: clear to auscultation Neuro: Positive: Grossly Intact, Other (lrft hemiplegia, non-verbal) Abdomen: Positive: Soft, Active Bowel Sounds Skin: Positive: Clear. Negative: Rash Extremities: Present: normal. Absent: edema - Labs and Meds CBC 05/26/17 Range/Units 05:39 WBC 13.7 H (4.5-11.0) K/mm3 RBC 3.60 L (3.65-5.03) M/mm3 Hgb 9.5 L (10.1-14.3) gm/dl Hct 31.2 (30.3-42.9) % Plt Count 138 L (140-440) K/mm3 Lymph # 0.4 L (1.2-5.4) K/mm3 [place] # 1.1 H (0.0-0.8) K/mm3 Eos # 0.9 H (0.0-0.4) K/mm3 Baso # 0.1 (0.0-0.1) K/mm3 Comprehensive Metabolic Panel 05/26/17 Range/Units 05:39 Sodium 144 (137-145) mmol/L Potassium 3.5 L (3.6-5.0) mmol/L Chloride 100.3 (98-107) mmol/L Carbon Dioxide 17 L (22-30) mmol/L BUN 77 H (7-17) mg/dL Creatinine 6.2 H (0.7-1.2) mg/dL Glucose 95 (65-100) mg/dL Calcium 8.5 (8.4-10.2) mg/dL - Imaging and Cardiology EKG: image reviewed Echo: report reviewed (02/2017 showed EF 55-60%, impaired relaxation, mild to moderate TR, RVSP 47mmHg) - Telemetry EKG Rhythm: Sinus Tachycardia - EKG Sinus rhythms and dysrhythmias: sinus rhythm
--- NOTE | 2017-05-26 17:34 | Consultation ---
History of Present Illness Consult date: 05/26/17 History of present illness: I have dictated a full note on this patient and there are multiple small vessel infarct typical for diabetes / HTN/ age/ESRD do not see bleed or mass effect advise conservative management Thanks for the consult Past History Past Medical History: diabetes, ESRD, hypertension, stroke Past Surgical History: No surgical history, Other (UTO) Social history: single Family history: no significant family history (UTO) Medications and Allergies Allergies Allergy/AdvReac Type Severity Reaction Status Date / Time Penicillins Allergy Unknown Unknown Verified 05/24/17 20:29 Home Medications Medication Instructions Recorded Confirmed Last Taken Type Acetaminophen/Codeine [Tylenol 1 mg PO Q4H PRN 05/24/17 05/24/17 Unknown History /Codeine # 3 tab] AtorvaSTATin [Lipitor] 40 mg PO QHS 05/24/17 05/24/17 Unknown History Clopidogrel Bisulfate [Plavix] 75 mg PO DAILY 05/24/17 05/24/17 Unknown History Collagenase [Santyl] 1 mg TP DAILY 05/24/17 05/24/17 Unknown History Dextrose [Glucose Gel] 38 gm PO PRN PRN 05/24/17 05/24/17 Unknown History Docusate Sodium [Colace Clear] 100 mg PO BID 05/24/17 05/24/17 Unknown History Folic Acid/Vit B Complex and C 0.8 mg PO DAILY 05/24/17 05/24/17 Unknown History [Renal Vitamin Tablet] Glucagon,Human Recombinant 1 mg SUB-Q PRN 05/24/17 05/24/17 Unknown History [Glucagon Emergency Kit] Lactulose [Lactulose] 20 mg PO PRN PRN 05/24/17 05/24/17 Unknown History Metoprolol Xl [Metoprolol 50 mg PO QDAY 05/24/17 05/24/17 Unknown History SUCCINATE ER TAB] Pregabalin [Lyrica] 100 mg PO BID 05/24/17 05/24/17 Unknown History Tylenol Extra Strength 1,000 mg PO Q6HR PRN 05/24/17 05/24/17 Unknown History hydrALAZINE [Apresoline] 50 mg PO DAILY 05/24/17 05/24/17 Unknown History Active Meds: Active Medications Acetaminophen (Tylenol) 650 mg PO Q4H PRN PRN Reason: Pain, Mild (1-3) Aspirin (Aspirin) 325 mg PO QDAY [facility] Last Admin: 05/26/17 10:45 Dose: Not Given Bisacodyl (Dulcolax) 10 mg VA QDAY PRN PRN Reason: Constipation Dextrose (D50w (25gm) Syringe) 50 ml IV PRN PRN PRN Reason: Hypoglycemia Insulin Aspart (Novolog) 0 units SUB-Q Q4H LEE PRN Reason: Protocol Last Admin: 05/26/17 17:02 Dose: Not Given Magnesium Hydroxide (Milk Of Magnesia) 30 ml PO Q4H PRN PRN Reason: Constipation Metoclopramide HCl (Reglan) 10 mg PO Q6H PRN PRN Reason: Nausea And Vomiting Ondansetron HCl (Zofran) 4 mg IV Q8H PRN PRN Reason: N/V unrelieved by Reglan Promethazine HCl (Phenergan) 25 mg VA Q6H PRN PRN Reason: Nausea And Vomiting Sodium Chloride (Sodium Chloride Flush Syringe 10 Ml) 10 ml IV PRN PRN PRN Reason: LINE FLUSH Physical Examination - Vital Signs Vital Signs: Vital Signs Temp Pulse Resp BP Pulse Ox 98.2 F 101 H 22 108/38 96 05/24/17 09:07 05/24/17 09:07 05/24/17 09:07 05/24/17 09:07 05/24/17 09:07 Results - Laboratory Findings CBC and BMP: 05/26/17 05:39 05/26/17 05:39 Abnormal Lab Findings: Abnormal Labs 05/24/17 05/24/17 05/25/17 09:04 09:04 09:38 WBC 19.1 H 19.4 H RBC Hgb 10.0 L MCH 26 L 26 L RDW 22.4 H 22.7 H Plt Count 134 L Lymph % (Auto) 3.5 L 3.4 L [place] % (Auto) 7.4 H Eos % (Auto) 4.6 H Lymph # 0.7 L 0.7 L [place] # 1.4 H 1.4 H Eos # 0.5 H 0.9 H Seg Neutrophils % 86.3 H 84.8 H Seg Neutrophils # 16.5 H 16.4 H Potassium 2.7 L* Chloride 95.5 L Carbon Dioxide BUN 55 H Creatinine 4.3 H Glucose 130 H POC Glucose Troponin T 3.720 H* LDL Cholesterol Direct 27 L HDL Cholesterol 36 L 05/25/17 05/25/17 05/25/17 09:38 09:38 13:49 WBC RBC Hgb MCH RDW Plt Count Lymph % (Auto) [place] % (Auto) Eos % (Auto) Lymph # [place] # Eos # Seg Neutrophils % Seg Neutrophils # Potassium 3.2 L Chloride Carbon Dioxide 19 L BUN 69 H Creatinine 4.8 H Glucose POC Glucose Troponin T 4.500 H* D 4.590 H* LDL Cholesterol Direct HDL Cholesterol 05/25/17 05/26/17 05/26/17 21:11 05:39 05:39 WBC 13.7 H RBC 3.60 L Hgb 9.5 L MCH 27 L RDW 21.8 H Plt Count 138 L Lymph % (Auto) 3.1 L [place] % (Auto) 8.0 H Eos % (Auto) 6.6 H Lymph # 0.4 L [place] # 1.1 H Eos # 0.9 H Seg Neutrophils % 81.9 H Seg Neutrophils # 11.2 H Potassium 3.5 L Chloride Carbon Dioxide 17 L BUN 77 H Creatinine 6.2 H Glucose POC Glucose 61 L Troponin T LDL Cholesterol Direct HDL Cholesterol 05/26/17 07:08 WBC RBC Hgb MCH RDW Plt Count Lymph % (Auto) Taylor % (Auto) Eos % (Auto) Lymph # Taylor # Eos # Seg Neutrophils % Seg Neutrophils # Potassium Chloride Carbon Dioxide BUN Creatinine Glucose POC Glucose 110 H Troponin T LDL Cholesterol Direct HDL Cholesterol
--- NOTE | 2017-05-26 18:00 | Consultation ---
History of Present Illness - Reason for Consult Consult date: 05/26/17 ( Consult dictated) - History of Present Illness Consult was called in this afternoon. pt was seen and examined during HD around 5.20pm.BP-93/54,P-115, afebrile Past History Past Medical History: diabetes, ESRD, hypertension, stroke Past Surgical History: No surgical history, Other (UTO) Social history: single Family history: no significant family history (UTO) Medications and Allergies Allergies Allergy/AdvReac Type Severity Reaction Status Date / Time Penicillins Allergy Unknown Unknown Verified 05/24/17 20:29 Home Medications Medication Instructions Recorded Confirmed Last Taken Type Acetaminophen/Codeine [Tylenol 1 mg PO Q4H PRN 05/24/17 05/24/17 Unknown History /Codeine # 3 tab] AtorvaSTATin [Lipitor] 40 mg PO QHS 05/24/17 05/24/17 Unknown History Clopidogrel Bisulfate [Plavix] 75 mg PO DAILY 05/24/17 05/24/17 Unknown History Collagenase [Santyl] 1 mg TP DAILY 05/24/17 05/24/17 Unknown History Dextrose [Glucose Gel] 38 gm PO PRN PRN 05/24/17 05/24/17 Unknown History Docusate Sodium [Colace Clear] 100 mg PO BID 05/24/17 05/24/17 Unknown History Folic Acid/Vit B Complex and C 0.8 mg PO DAILY 05/24/17 05/24/17 Unknown History [Renal Vitamin Tablet] Glucagon,Human Recombinant 1 mg SUB-Q PRN 05/24/17 05/24/17 Unknown History [Glucagon Emergency Kit] Lactulose [Lactulose] 20 mg PO PRN PRN 05/24/17 05/24/17 Unknown History Metoprolol Xl [Metoprolol 50 mg PO QDAY 05/24/17 05/24/17 Unknown History SUCCINATE ER TAB] Pregabalin [Lyrica] 100 mg PO BID 05/24/17 05/24/17 Unknown History Tylenol Extra Strength 1,000 mg PO Q6HR PRN 05/24/17 05/24/17 Unknown History hydrALAZINE [Apresoline] 50 mg PO DAILY 05/24/17 05/24/17 Unknown History Active Meds: Active Medications Acetaminophen (Tylenol) 650 mg PO Q4H PRN PRN Reason: Pain, Mild (1-3) Aspirin (Aspirin) 325 mg PO QDAY [facility] Last Admin: 05/26/17 10:45 Dose: Not Given Bisacodyl (Dulcolax) 10 mg MT QDAY PRN PRN Reason: Constipation Dextrose (D50w (25gm) Syringe) 50 ml IV PRN PRN PRN Reason: Hypoglycemia Insulin Aspart (Novolog) 0 units SUB-Q Q4H LEE PRN Reason: Protocol Last Admin: 05/26/17 17:02 Dose: Not Given Magnesium Hydroxide (Milk Of Magnesia) 30 ml PO Q4H PRN PRN Reason: Constipation Metoclopramide HCl (Reglan) 10 mg PO Q6H PRN PRN Reason: Nausea And Vomiting Ondansetron HCl (Zofran) 4 mg IV Q8H PRN PRN Reason: N/V unrelieved by Reglan Promethazine HCl (Phenergan) 25 mg MT Q6H PRN PRN Reason: Nausea And Vomiting Sodium Chloride (Sodium Chloride Flush Syringe 10 Ml) 10 ml IV PRN PRN PRN Reason: LINE FLUSH Exam - Constitutional Vitals: Temp Pulse Resp BP Pulse Ox 98.0 F 116 H 16 132/47 100 05/26/17 11:39 05/26/17 11:39 05/26/17 11:39 05/26/17 11:39 05/26/17 11:39 Results - Labs CBC & Chem 7: 05/26/17 05:39 05/26/17 05:39 Labs: Abnormal lab results 05/25/17 05/26/17 05/26/17 Range/Units 21:11 05:39 05:39 WBC 13.7 H (4.5-11.0) K/mm3 RBC 3.60 L (3.65-5.03) M/mm3 Hgb 9.5 L (10.1-14.3) gm/dl MCH 27 L (28-32) pg RDW 21.8 H (13.2-15.2) % Plt Count 138 L (140-440) K/mm3 Lymph % (Auto) 3.1 L (13.4-35.0) % [place] % (Auto) 8.0 H (0.0-7.3) % Eos % (Auto) 6.6 H (0.0-4.3) % Lymph # 0.4 L (1.2-5.4) K/mm3 [place] # 1.1 H (0.0-0.8) K/mm3 Eos # 0.9 H (0.0-0.4) K/mm3 Seg Neutrophils % 81.9 H (40.0-70.0) % Seg Neutrophils # 11.2 H (1.8-7.7) K/mm3 Potassium 3.5 L (3.6-5.0) mmol/L Carbon Dioxide 17 L (22-30) mmol/L BUN 77 H (7-17) mg/dL Creatinine 6.2 H (0.7-1.2) mg/dL POC Glucose 61 L (70-105) 05/26/17 Range/Units 07:08 WBC (4.5-11.0) K/mm3 RBC (3.65-5.03) M/mm3 Hgb (10.1-14.3) gm/dl MCH (28-32) pg RDW (13.2-15.2) % Plt Count (140-440) K/mm3 Lymph % (Auto) (13.4-35.0) % [place] % (Auto) (0.0-7.3) % Eos % (Auto) (0.0-4.3) % Lymph # (1.2-5.4) K/mm3 [place] # (0.0-0.8) K/mm3 Eos # (0.0-0.4) K/mm3 Seg Neutrophils % (40.0-70.0) % Seg Neutrophils # (1.8-7.7) K/mm3 Potassium (3.6-5.0) mmol/L Carbon Dioxide (22-30) mmol/L BUN (7-17) mg/dL Creatinine (0.7-1.2) mg/dL POC Glucose 110 H (70-105)
[2017-05-26] MEDS ORDERED: HEPARIN IV PRN (18:29)
[2017-05-26] MEDS ORDERED: NACL 0.9 (PRIMING MACHINE ONLY DIALYSIS) MC ONE (18:55)
--- NOTE | 2017-05-27 01:39 | Consultation ---
HISTORY OF PRESENT ILLNESS: This is a 77-year-old detention resident with a prior history of CVA with left hemiparesis; end-stage renal disease, on hemodialysis; and severe dementia. She presented to the Emergency Room, found lethargic, unable to provide a history. Apparently, she probably found to be confused, unable to speak and now unable to move her right side. She was felt to have had the new onset of a stroke, poor prognosis. She has had end-stage renal disease, diabetes mellitus, hypertension, prior history of strokes. Her blood pressure on admission was 108/32. She had a CT scan of the head, which was performed and showed evidence of posterior circulation strokes and then the MRI scan was done, which as well showed very large number of lacunar infarcts and as well the MRI confirmed that there were multiple chronic and subacute infarcts in the posterior circulations suggestive of a very extreme small vessel disease due to diabetes, end-stage renal disease, and hypertension. My initial review of her CT scan done on 02/21/2017 shows extreme atrophy of the cerebellum, fourth ventricular structures, and there are bilateral infarcts present within the adjacent white matter of the frontal lobes, also posterior cerebral area in the parieto-occipital region, marked atrophy of the frontal cortex, but no acute edema. ASSESSMENT AND PLAN: My overall impression in this case that she certainly has a very poor prognosis given the multiple strokes that she has had, deep white matter cortical atrophy, underlying risk factors including diabetes, hypertension, and end-stage renal disease. She also has acute infarcts in the posterior circulation suggestive of multiple abnormalities. Recommend conservative management. [facility]# [id number] KEVIN/GUILLE
[2017-05-27] MEDS ORDERED: TYLENOL PR PRN (02:33)
--- NOTE | 2017-05-27 04:19 | Consultation ---
RENAL CONSULTATION REASON FOR CONSULTATION: End-stage renal disease. HISTORY OF PRESENT ILLNESS: This 77-year-old -[place] female with end-stage renal disease, diabetes, hypertension, CVA, was admitted on 05/24/2017. Unable to obtain any information from the patient. Chart was reviewed. Consultation was called in this afternoon. The patient was found to be confused and unable to speak and unable to move her right side. The patient was found to have new onset CVA and was treated with ____ stroke protocol. PAST MEDICAL HISTORY: Diabetes, hypertension, end-stage renal disease, CVA. PERSONAL HISTORY: The patient lives in a usp. FAMILY HISTORY: Not available. ALLERGIES: PENICILLIN. CURRENT MEDICATIONS: Aspirin 325 mg once a day, NovoLog. REVIEW OF SYSTEMS: Unable to obtain. PHYSICAL EXAMINATION: GENERAL: The patient is a chronically ill-looking female, nonverbal. HEENT: Conjunctivae are pale. Oral mucosa and tongue and lips are dry. NECK: No JVD. No thyroid enlargement. LUNGS: Diminished breath sounds at bases. HEART: S1, S2 regular, 2/6 systolic murmur along the left sternal border. ABDOMEN: Soft, bowel sounds present. EXTREMITIES: Right IJ tunneled catheter in place. LABORATORY DATA: WBC 13.7, hemoglobin 9.5, hematocrit 31.2, platelets 138. Sodium 144, potassium 3.5, chloride 100, CO2 is 17, BUN 77, creatinine 6.2, glucose 95. ASSESSMENT AND PLAN: 1. Cerebrovascular accident. A CT scan of the head and MRI of the brain reports reviewed with multiple bilateral areas of subacute and acute infarcts. Neurology consult noted. 2. End-stage renal disease, hemodialysis as ordered. 3. Diabetes. 4. Hypertension. 5. Encephalopathy. 6. Anemia and chronic kidney disease. Hemodialysis as ordered, avoid hypotension. Thank you for the consultation. JOB# [id number] UMK/GUILLE
[2017-05-27] MEDS: NOVOLOG SUB-Q SCH ×3 (09:18→18:07)
--- NOTE | 2017-05-27 09:28 | Progress Note ---
Subjective Principal diagnosis: elevated troponin Interval history: Patient was seen today for follow-up on multiple renal related issues Events of this hospitalization noted patient is resting comfortably in bed she appears to be encephalopathic and does not open her eyes Vitals labs intake output medications were reviewed Social history: Reviewed Allergies: Reviewed Family history: Reviewed Physical examination HEENT: Oral mucosa moist no pallor or icterus Neck: Supple no JVD Chest: Clear to auscultation anteriorly central venous catheter site unremarkable CVS: Regular rate and rhythm S1 and S2 heard Abdomen: Soft nontender no suprapubic masses no organomegaly appreciable Extremity: Dry skin less than 1+ peripheral edema Musculoskeletal: No joint effusion noted in knees and ankle Dermatology: No petechial rashes Assessment and plan End-stage renal disease patient is currently in maintenance hemodialysis 3 times a week judicious ultrafiltration as the patient is frail close monitoring of hemodynamics on hemodialysis She will be kept on dialysis on Tuesday and Tuesday with four potassium bath Elevated troponin due to non-ST elevation [facility] cardiology following Admitted with acute CVA/noted to be encephalopathic Patient is too frail to have a fistula placed in my opinion Anemia in end-stage renal disease: To monitor and follow, no erythropoietin due to stroke and acute [place] Secondary hyperparathyroidism: To monitor and follow phosphorus and PTH level Malnutrition risk is high in dialysis patients in general patient will benefit from a nutrition evaluation and follow-up She needs to be in high protein diet preferably 1.5 g per KG body weight Chronically deconditioned and weak, overall prognosis appears to be very poor due to advanced age and multiple comorbidities she may be hospice appropriate if family agrees We'll continue to follow and make recommendation from renal standpoint Objective - Vital Signs Vital signs: Vital Signs - 12hr 05/26/17 05/26/17 05/26/17 21:51 22:00 23:21 Temperature 100.7 F H Pulse Rate 116 H Respiratory 18 18 Rate Blood Pressure 111/53 Blood Pressure [Right] O2 Sat by Pulse 96 100 Oximetry 05/26/17 05/27/17 05/27/17 23:36 05:17 08:51 Temperature 99.2 F 97.9 F Pulse Rate 128 H 108 H 87 Respiratory 16 14 Rate Blood Pressure 127/54 Blood Pressure 134/57 [Right] O2 Sat by Pulse 100 100 Oximetry - Lab 05/26/17 05:39 05/27/17 10:02 Most recent lab results Calcium 8.5 mg/dL (8.4-10.2) 05/26/17 05:39
--- NOTE | 2017-05-27 09:39 | Gastroenterology Consultation ---
<KELLEY HIGHTOWER - Last Filed: 05/27/17 09:51> History of Present Illness - Reason for Consult Consult date: 05/27/17 PEG placement Requesting physician: SRI REED - History of Present Illness Patient is a 77 y/o female senior care resident with PMH of HTN, DM, CVA, ESRD on HD, and dementia who was admitted for acute CVA. GI has been consulted for PEG placement. This am pt resting in bed w/o acute distress. She opens eyes to stimuli but is unable to speak. No family at beside. History obtained via chart review. Speech attemped an eval on 05/24/16 but pt was unable to open her mouth for PO. No current means of nutrition. Past History Past Medical History: diabetes, ESRD, hypertension, stroke Past Surgical History: No surgical history, bowel surgery, Other (UTO) Social history: single Family history: no significant family history (UTO) Medications and Allergies Allergies Allergy/AdvReac Type Severity Reaction Status Date / Time Penicillins Allergy Unknown Unknown Verified 05/24/17 20:29 Home Medications Medication Instructions Recorded Confirmed Last Taken Type Acetaminophen/Codeine [Tylenol 1 mg PO Q4H PRN 05/24/17 05/24/17 Unknown History /Codeine # 3 tab] AtorvaSTATin [Lipitor] 40 mg PO QHS 05/24/17 05/24/17 Unknown History Clopidogrel Bisulfate [Plavix] 75 mg PO DAILY 05/24/17 05/24/17 Unknown History Collagenase [Santyl] 1 mg TP DAILY 05/24/17 05/24/17 Unknown History Dextrose [Glucose Gel] 38 gm PO PRN PRN 05/24/17 05/24/17 Unknown History Docusate Sodium [Colace Clear] 100 mg PO BID 05/24/17 05/24/17 Unknown History Folic Acid/Vit B Complex and C 0.8 mg PO DAILY 05/24/17 05/24/17 Unknown History [Renal Vitamin Tablet] Glucagon,Human Recombinant 1 mg SUB-Q PRN 05/24/17 05/24/17 Unknown History [Glucagon Emergency Kit] Lactulose [Lactulose] 20 mg PO PRN PRN 05/24/17 05/24/17 Unknown History Metoprolol Xl [Metoprolol 50 mg PO QDAY 05/24/17 05/24/17 Unknown History SUCCINATE ER TAB] Pregabalin [Lyrica] 100 mg PO BID 05/24/17 05/24/17 Unknown History Tylenol Extra Strength 1,000 mg PO Q6HR PRN 05/24/17 05/24/17 Unknown History hydrALAZINE [Apresoline] 50 mg PO DAILY 05/24/17 05/24/17 Unknown History Active Meds: Active Medications Acetaminophen (Tylenol) 650 mg ID Q6H PRN PRN Reason: Pain, Mild (1-3) Last Admin: 05/27/17 02:44 Dose: 650 mg Aspirin (Aspirin) 325 mg PO QDAY [facility] Last Admin: 05/26/17 10:45 Dose: Not Given Bisacodyl (Dulcolax) 10 mg ID QDAY PRN PRN Reason: Constipation Dextrose (D50w (25gm) Syringe) 50 ml IV PRN PRN PRN Reason: Hypoglycemia Heparin Sodium (Porcine) (Heparin) 5,000 unit IV MANUEL PRN PRN Reason: hemodialysis Last Admin: 05/26/17 20:06 Dose: 5,000 unit Insulin Aspart (Novolog) 0 units SUB-Q Q4H LEE PRN Reason: Protocol Last Admin: 05/27/17 09:18 Dose: Not Given Ondansetron HCl (Zofran) 4 mg IV Q8H PRN PRN Reason: N/V unrelieved by Reglan Promethazine HCl (Phenergan) 25 mg ID Q6H PRN PRN Reason: Nausea And Vomiting Sodium Chloride (Sodium Chloride Flush Syringe 10 Ml) 10 ml IV PRN PRN PRN Reason: LINE FLUSH Review of Systems - Review of Systems ROS unobtainable: due to mental status Exam - Constitutional Vital Signs: Temp Pulse Resp BP Pulse Ox 97.9 F 87 14 134/57 100 05/27/17 08:51 05/27/17 08:51 05/27/17 08:51 05/27/17 08:51 05/27/17 08:51 General appearance: no acute distress, other (non-verbal) - Respiratory Respiratory: bilateral: CTA (anterior) - Cardiovascular Rhythm: regular Heart Sounds: Present: S1 & S2 - Gastrointestinal General gastrointestinal: Present: soft, non-distended, normal bowel sounds - Neurologic Neurological: left side weakness - Labs CBC & Chem 7: 05/26/17 05:39 05/26/17 05:39 Lab Results: Laboratory Results - last 24 hr 05/26/17 05/26/17 05/26/17 11:24 11:47 21:34 POC Glucose 95 101 107 H Assessment and Plan 1. PEG placement 2. CVA 3.encephalopathy 4.DM 5.ESRD on HD -spoke with pt's son Kaushal King ([phone]) regarding PEG placement. Discussed the nature of this procedure, details of the technique, benefits, purpose, and risks including perforation, bleeding, infection, and risks of anesthesia. He wishes to proceed with procedure. -will schedule for EGD/PEG placement today -Keep NPO -INR 1.11 -will follow <CARSON MATHIS R - Last Filed: 05/27/17 11:51> Medications and Allergies Active Meds: Active Medications Acetaminophen (Tylenol) 650 mg ID Q6H PRN PRN Reason: Pain, Mild (1-3) Last Admin: 05/27/17 02:44 Dose: 650 mg Aspirin (Aspirin) 325 mg PO QDAY [facility] Last Admin: 05/26/17 10:45 Dose: Not Given Bisacodyl (Dulcolax) 10 mg ID QDAY PRN PRN Reason: Constipation Dextrose (D50w (25gm) Syringe) 50 ml IV PRN PRN PRN Reason: Hypoglycemia Heparin Sodium (Porcine) (Heparin) 5,000 unit IV MANUEL PRN PRN Reason: hemodialysis Last Admin: 05/26/17 20:06 Dose: 5,000 unit Insulin Aspart (Novolog) 0 units SUB-Q Q4H LEE PRN Reason: Protocol Last Admin: 05/27/17 09:18 Dose: Not Given Ondansetron HCl (Zofran) 4 mg IV Q8H PRN PRN Reason: N/V unrelieved by Reglan Promethazine HCl (Phenergan) 25 mg ID Q6H PRN PRN Reason: Nausea And Vomiting Sodium Chloride (Sodium Chloride Flush Syringe 10 Ml) 10 ml IV PRN PRN PRN Reason: LINE FLUSH Exam - Constitutional Vital Signs: Temp Pulse Resp BP Pulse Ox 97.9 F 101 H 14 134/57 100 05/27/17 08:51 05/27/17 10:51 05/27/17 08:51 05/27/17 08:51 05/27/17 08:51 - Labs CBC & Chem 7: 05/26/17 05:39 05/27/17 10:02 Lab Results: Laboratory Results - last 24 hr 05/26/17 05/26/17 05/27/17 11:47 21:34 10:02 Sodium 144 Potassium 3.2 L Chloride 96.3 L Carbon Dioxide 26 D Anion Gap 25 BUN 29 H Creatinine 3.2 H Estimated GFR 17 BUN/Creatinine Ratio 9 Glucose 106 H POC Glucose 101 107 H Calcium 8.8 Assessment and Plan Pt seen and examined. Will do EGD/PEG.
[2017-05-27 11:06] LABS: Calcium 8.8 mg/dL (8.4-10.2)
--- NOTE | 2017-05-27 11:38 | Progress Note ---
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 Cerebral vascular accident CT of the head shows right cerebellar hemisphere concerning for subacute ischemia and 2 suspicious area diminished attenuation in the left occipital lobe. MRI of the brain revealed multiple bilateral areas of subacute/acute infarcts. VL carotid no stenosis. Echocardiogram 02/2017 showed EF 55-60%, impaired relaxation. Continue on aspirin Continue on statins Frequent neuro checks. Neurology consult Physical therapy/occupational therapy on board. Supportive care Encephalopathy Most likely due to acute and chronic CVA CT of the head shows right cerebellar hemisphere concerning for subacute ischemia and 2 suspicious area diminished attenuation in the left occipital lobe. Supportive care Elevated Troponin Cardiology consult 02/2017 showed EF 55-60%, impaired relaxation Due to Multiple co-morbid conditions the patient is not a candidate for invasive cardiac management per cardiology Hypertensive urgency/emergency Continue home antihypertensive medication. Gently IV hydralazine for SBP> 160 Closely monitor blood pressure Diabetes mellitus Accu-Chek before meals and at bedtime works on sliding scale insulin/Novolog Quadriparesis (muscle weakness) Secondary to acute and chronic CVA. Physical therapy/occupational therapy on board. End stage renal disease Nephrology consulted for dialysis Hyperlipidemia Continue on antilipid agents Dysphagia GI consult for EGD/PEG placement Nutrition consult DVT prophylaxis Lovenox History Interval history: Patient confused and lethargic. No sign and symptoms of discomfort. Labs and nursing notes reviewed. Hospitalist Physical - Constitutional Vitals: Temp Pulse Resp BP Pulse Ox 97.9 F 101 H 14 134/57 100 05/27/17 08:51 05/27/17 10:51 05/27/17 08:51 05/27/17 08:51 05/27/17 08:51 General appearance: Present: no acute distress (non-verbal, left hemiplegia), other (confused ) - EENT Eyes: Present: PERRL ENT: hearing intact, other (right facial droop present) - Neck Neck: Present: supple - Respiratory Respiratory effort: normal Respiratory: bilateral: CTA - Cardiovascular Rhythm: regular Heart Sounds: Present: S1 & S2 - Extremities Extremity abnormal: other (Bilateral upper extremities decreased strength.Also bilateral LE unable to move bilateral legs against gravit) - Abdominal General gastrointestinal: soft, non-tender - Integumentary Integumentary: Present: clear, warm, dry - Psychiatric Psychiatric: other (impaired judjment) - Neurologic Neurologic: other (Bilateral upper extremities decreased strength.Also bilateral LE unable to move bilateral legs against gravit) - Allied Health Allied health notes reviewed: nursing Results - Labs CBC & Chem 7: 05/26/17 05:39 05/27/17 10:02 Labs: Laboratory Last Values WBC 13.7 K/mm3 (4.5-11.0) H 05/26/17 05:39 RBC 3.60 M/mm3 (3.65-5.03) L 05/26/17 05:39 Hgb 9.5 gm/dl (10.1-14.3) L 05/26/17 05:39 Hct 31.2 % (30.3-42.9) 05/26/17 05:39 MCV 87 fl (79-97) 05/26/17 05:39 MCH 27 pg (28-32) L 05/26/17 05:39 MCHC 31 % (30-34) 05/26/17 05:39 RDW 21.8 % (13.2-15.2) H 05/26/17 05:39 Plt Count 138 K/mm3 (140-440) L 05/26/17 05:39 Lymph % (Auto) 3.1 % (13.4-35.0) L 05/26/17 05:39 [place] % (Auto) 8.0 % (0.0-7.3) H 05/26/17 05:39 Eos % (Auto) 6.6 % (0.0-4.3) H 05/26/17 05:39 Baso % (Auto) 0.4 % (0.0-1.8) 05/26/17 05:39 Lymph # 0.4 K/mm3 (1.2-5.4) L 05/26/17 05:39 [place] # 1.1 K/mm3 (0.0-0.8) H 05/26/17 05:39 Eos # 0.9 K/mm3 (0.0-0.4) H 05/26/17 05:39 Baso # 0.1 K/mm3 (0.0-0.1) 05/26/17 05:39 Seg Neutrophils % 81.9 % (40.0-70.0) H 05/26/17 05:39 Seg Neutrophils # 11.2 K/mm3 (1.8-7.7) H 05/26/17 05:39 PT 14.9 Sec. (12.2-14.9) 05/24/17 09:04 INR 1.11 (0.87-1.13) 05/24/17 09:04 APTT 36.1 Sec. (24.2-36.6) 05/24/17 09:04 Thrombin Time 16.5 Sec. (15.1-19.6) 05/24/17 09:04 Sodium 144 mmol/L (137-145) 05/27/17 10:02 Potassium 3.2 mmol/L (3.6-5.0) L 05/27/17 10:02 Chloride 96.3 mmol/L (98-107) L 05/27/17 10:02 Carbon Dioxide 26 mmol/L (22-30) D 05/27/17 10:02 Anion Gap 25 mmol/L 05/27/17 10:02 BUN 29 mg/dL (7-17) H 05/27/17 10:02 Creatinine 3.2 mg/dL (0.7-1.2) H 05/27/17 10:02 Estimated GFR 17 ml/min 05/27/17 10:02 BUN/Creatinine Ratio 9 % 05/27/17 10:02 Glucose 106 mg/dL (65-100) H 05/27/17 10:02 POC Glucose 107 (70-105) H 05/26/17 21:34 Calcium 8.8 mg/dL (8.4-10.2) 05/27/17 10:02 Troponin T 4.590 ng/mL (0.00-0.029) H* 05/25/17 13:49 Triglycerides 95 mg/dL (2-149) 05/24/17 09:04 Cholesterol 82 mg/dL (50-199) 05/24/17 09:04 LDL Cholesterol Direct 27 mg/dL (50-130) L 05/24/17 09:04 HDL Cholesterol 36 mg/dL (40-59) L 05/24/17 09:04 Cholesterol/HDL Ratio 2.27 % 05/24/17 09:04 <SRI REED R - Last Filed: 05/27/17 15:25> Assessment and Plan Assessment and plan: I saw and evaluated the patient. I agree with the findings and the plan of care as documented in the Nurse Practitioner's~note, with the following corrections and additions. Hospitalist Physical - Constitutional Vitals: Temp Pulse Resp BP Pulse Ox 97.9 F 103 H 14 119/49 100 05/27/17 13:06 05/27/17 13:21 05/27/17 13:21 05/27/17 13:21 05/27/17 13:21 Results - Labs CBC & Chem 7: 05/26/17 05:39 05/27/17 10:02 Labs: Laboratory Last Values WBC 13.7 K/mm3 (4.5-11.0) H 05/26/17 05:39 RBC 3.60 M/mm3 (3.65-5.03) L 05/26/17 05:39 Hgb 9.5 gm/dl (10.1-14.3) L 05/26/17 05:39 Hct 31.2 % (30.3-42.9) 05/26/17 05:39 MCV 87 fl (79-97) 05/26/17 05:39 MCH 27 pg (28-32) L 05/26/17 05:39 MCHC 31 % (30-34) 05/26/17 05:39 RDW 21.8 % (13.2-15.2) H 05/26/17 05:39 Plt Count 138 K/mm3 (140-440) L 05/26/17 05:39 Lymph % (Auto) 3.1 % (13.4-35.0) L 05/26/17 05:39 [place] % (Auto) 8.0 % (0.0-7.3) H 05/26/17 05:39 Eos % (Auto) 6.6 % (0.0-4.3) H 05/26/17 05:39 Baso % (Auto) 0.4 % (0.0-1.8) 05/26/17 05:39 Lymph # 0.4 K/mm3 (1.2-5.4) L 05/26/17 05:39 [place] # 1.1 K/mm3 (0.0-0.8) H 05/26/17 05:39 Eos # 0.9 K/mm3 (0.0-0.4) H 05/26/17 05:39 Baso # 0.1 K/mm3 (0.0-0.1) 05/26/17 05:39 Seg Neutrophils % 81.9 % (40.0-70.0) H 05/26/17 05:39 Seg Neutrophils # 11.2 K/mm3 (1.8-7.7) H 05/26/17 05:39 PT 14.9 Sec. (12.2-14.9) 05/24/17 09:04 INR 1.11 (0.87-1.13) 05/24/17 09:04 APTT 36.1 Sec. (24.2-36.6) 05/24/17 09:04 Thrombin Time 16.5 Sec. (15.1-19.6) 05/24/17 09:04 Sodium 144 mmol/L (137-145) 05/27/17 10:02 Potassium 3.2 mmol/L (3.6-5.0) L 05/27/17 10:02 Chloride 96.3 mmol/L (98-107) L 05/27/17 10:02 Carbon Dioxide 26 mmol/L (22-30) D 05/27/17 10:02 Anion Gap 25 mmol/L 05/27/17 10:02 BUN 29 mg/dL (7-17) H 05/27/17 10:02 Creatinine 3.2 mg/dL (0.7-1.2) H 05/27/17 10:02 Estimated GFR 17 ml/min 05/27/17 10:02 BUN/Creatinine Ratio 9 % 05/27/17 10:02 Glucose 106 mg/dL (65-100) H 05/27/17 10:02 POC Glucose 118 (70-105) H 05/27/17 07:22 Calcium 8.8 mg/dL (8.4-10.2) 05/27/17 10:02 Troponin T 4.590 ng/mL (0.00-0.029) H* 05/25/17 13:49 Triglycerides 95 mg/dL (2-149) 05/24/17 09:04 Cholesterol 82 mg/dL (50-199) 05/24/17 09:04 LDL Cholesterol Direct 27 mg/dL (50-130) L 05/24/17 09:04 HDL Cholesterol 36 mg/dL (40-59) L 05/24/17 09:04 Cholesterol/HDL Ratio 2.27 % 05/24/17 09:04
[2017-05-27] MEDS ORDERED: HURRICAINE ONE 20% TOPICAL SPRAY MM ×2 (12:24→12:32)
[2017-05-27] MEDS ORDERED: WATER FOR IRRIG STERILE IR ONE (12:25)
[2017-05-27] MEDS ORDERED: VERSED ONE (12:25)
[2017-05-27] MEDS ORDERED: SUBLIMAZE ONE (12:25)
[2017-05-27] MEDS ORDERED: VERSED IV ONE (12:32)
[2017-05-27] MEDS ORDERED: SUBLIMAZE IV ONE (12:34)
--- NOTE | 2017-05-27 13:07 | Post Operative Note ---
Pre-op diagnosis: Dysphagia Post-op diagnosis: other (Normal EGD, successful G-tube) Findings: 1. Normal EGD 2. G-tube placed Procedure: EGD/PEG Anesthesia: other (versed 1 mg, fentanyl 25 mcg) Surgeon: CARSON MATHIS Estimated blood loss: minimal Pathology: none Condition: stable Disposition: floor (Initiate TF)
--- NOTE | 2017-05-27 14:37 | Operative Report ---
PROCEDURE: Upper endoscopy with G-tube placement. PREOPERATIVE DIAGNOSIS: Oropharyngeal dysphagia. POSTOPERATIVE DIAGNOSIS: Normal upper endoscopy and successful G-tube placement. SEDATION: MAC by Anesthesia. HISTORY: The patient is a 77-year-old woman status post CVA, who has failed modified barium swallow. Procedure, indications, risks, and benefits were explained to the patient's son. DESCRIPTION OF PROCEDURE: The patient was placed back on exam table and sedated. Hyperformixi video upper endoscope was passed through the mouth and oropharynx into the descending duodenum. Scope was then gradually withdrawn with close inspection of the mucosa into the gastric lumen. An appropriate location was transilluminated on the abdominal surface. This was prepped and draped in a sterile fashion. Then, 3 mL of 1% Xylocaine were infiltrated into the skin and subcutaneous tissues using the safe track technique. Guidewire was passed through trocar and grasped with a snare. This was pulled out the mouth with the snare and a G-tube was attached to the wire. This was pulled through the mouth and oropharynx into the gastric lumen. External bumper was fixed at 5 cm. Repeat endoscopy was performed and confirmed placement. FINDINGS: 1. Normal upper endoscopy with normal esophagus, stomach and duodenum. 2. Successful 20-Tajik G-tube placement into gastric body. The patient tolerated the procedure well without immediate complication. IMPRESSION: Normal upper endoscopy and successful G-tube placement. PLAN: Diet and nutritional consult for tube feeding. JOB# [id number] HRC/NTS
[2017-05-27] MEDS: ASPIRIN PO SCH (16:51)
[2017-05-27] MEDS ORDERED: SIMPLE SYRUP FEEDTUBE PRN ×2 (17:53)
[2017-05-27] MEDS ORDERED: PANCREAZE DR 10,500 UNIT FEEDTUBE PRN (17:53)
[2017-05-27] MEDS ORDERED: SODIUM BICARBONATE FEEDTUBE PRN (17:53)
[2017-05-27] MEDS ORDERED: DILAUDID IV PRN ×2 (19:08→19:15)
[2017-05-28] MEDS: NOVOLOG SUB-Q SCH ×6 (00:02→18:15)
[2017-05-28 06:26] LABS: Calcium 8.2 mg/dL (8.4-10.2)
[2017-05-28] MEDS ORDERED: POTASSIUM CHLORIDE FEEDTUBE ONE ×2 (08:35→14:00)
[2017-05-28] MEDS: ASPIRIN PO SCH (10:05)
--- NOTE | 2017-05-28 10:41 | Gastroenterology Progress Note ---
Assessment and Plan - Patient Problems (1) Inability to swallow Current Visit: Yes Status: Acute Plan to address problem: Tolerating tube feeds. G tube site clean and dry. Bumper loosed a little. Will s/o and F/U PRN. Thank you. (2) CVA (cerebral vascular accident) Current Visit: Yes Status: Acute Qualifiers: Laterality of affected vessel: left (3) Encephalopathy Current Visit: Yes Status: Acute Subjective Date of service: 05/28/17 Principal diagnosis: inability to swallow Interval history: The patient is non verbal. Objective - Constitutional Vitals: Temp Pulse Resp BP Pulse Ox 98.1 F 105 H 18 97/33 99 05/28/17 04:28 05/28/17 08:38 05/28/17 04:28 05/28/17 08:38 05/28/17 08:38 General appearance: no acute distress - EENT ENT: hearing intact - Respiratory Respiratory effort: normal Respiratory: bilateral: CTA - Cardiovascular Rhythm: regular - Gastrointestinal General gastrointestinal: Present: soft, non-tender, non-distended, normal bowel sounds, other ( G tube site clean and dry. The bumper was loosened.) - Neurologic Neurological: disoriented - Labs CBC & Chem 7: 05/26/17 05:39 05/28/17 05:39 Labs: Laboratory Results - last 24 hr 05/27/17 05/27/17 05/27/17 07:22 10:02 21:07 Sodium 144 Potassium 3.2 L Chloride 96.3 L Carbon Dioxide 26 D Anion Gap 25 BUN 29 H Creatinine 3.2 H Estimated GFR 17 BUN/Creatinine Ratio 9 Glucose 106 H POC Glucose 118 H 130 H Calcium 8.8 05/28/17 05/28/17 05/28/17 03:24 05:39 09:22 Sodium 142 Potassium 3.3 L Chloride 96.2 L Carbon Dioxide 20 L Anion Gap 29 BUN 45 H Creatinine 4.6 H Estimated GFR 11 BUN/Creatinine Ratio 10 Glucose 141 H POC Glucose 133 H 178 H Calcium 8.2 L
--- NOTE | 2017-05-28 12:45 | Progress Note ---
Subjective Principal diagnosis: inability to swallow Interval history: Patient was seen today for follow-up on multiple renal related issues patient is laying comfortably in bed she does not appear to be in any distress Vitals labs intake output medications were reviewed Social history: Reviewed Allergies: Reviewed Family history: Reviewed Physical examination HEENT: Oral mucosa moist no pallor or icterus Neck: Supple no JVD Chest: Clear to auscultation anteriorly central venous catheter site unremarkable CVS: Regular rate and rhythm S1 and S2 heard Abdomen: Soft nontender no suprapubic masses no organomegaly appreciable Extremity: Dry skin less than 1+ peripheral edema Musculoskeletal: No joint effusion noted in knees and ankle Dermatology: No petechial rashes Assessment and plan End-stage renal disease;patient will continue to dialyze on Tuesday monitor hemodynamics closely while on hemodialysis Status post non-ST elevation [place] cardiology following Also has had history of CVA/encephalopathy Anemia in end-stage renal disease: To monitor and follow, no erythropoietin due to stroke and acute [place] Secondary hyperparathyroidism: To monitor and follow phosphorus and PTH level Overall health very poor chronically debilitated deconditioned and weak Prognosis long-term extremely poor We'll continue to follow and make recommendation from renal standpoint Objective - Vital Signs Vital signs: Vital Signs - 12hr 05/28/17 05/28/17 05/28/17 02:20 04:28 08:38 Temperature 98.1 F Pulse Rate 106 H 105 H Pulse Rate [ From Monitor] Respiratory 18 Rate Blood Pressure 104/37 96/40 97/33 O2 Sat by Pulse 99 99 Oximetry 05/28/17 10:00 Temperature Pulse Rate 110 H Pulse Rate [ 105 H From Monitor] Respiratory Rate Blood Pressure O2 Sat by Pulse 99 Oximetry - Lab 05/26/17 05:39 05/28/17 05:39 Most recent lab results Calcium 8.2 mg/dL (8.4-10.2) L 05/28/17 05:39
--- NOTE | 2017-05-28 13:53 | Progress Note ---
Assessment and Plan Assessment and plan: Patient is a 77 years old woman from the [facility] with past medical history of HTN, DM, CVA with LHP, ESRD on HD, Dementia, Debility presents for [facility] complaints of confused and unable to speak. Acute ischemic infarct/CVA CT of the head shows right cerebellar hemisphere concerning for subacute ischemia and 2 suspicious area diminished attenuation in the left occipital lobe. MRI of the brain revealed multiple bilateral areas of subacute/acute infarcts. VL carotid no stenosis. Echocardiogram 02/2017 showed EF 55-60%, impaired relaxation. Continue on aspirin Continue on statins Frequent neuro checks. Neurology consult Physical therapy/occupational therapy on board. Supportive care Acute Encephalopathy Most likely due to acute and chronic CVA CT of the head shows right cerebellar hemisphere concerning for subacute ischemia and 2 suspicious area diminished attenuation in the left occipital lobe. Supportive care Elevated Troponin Cardiology consult 02/2017 showed EF 55-60%, impaired relaxation Due to Multiple co-morbid conditions the patient is not a candidate for invasive cardiac management per cardiology Hypertensive urgency/emergency Continue home antihypertensive medication. Gently IV hydralazine for SBP> 160 Closely monitor blood pressure Diabetes mellitus Accu-Chek before meals and at bedtime works on sliding scale insulin/Novolog Quadriparesis (muscle weakness) Secondary to acute and chronic CVA. Physical therapy/occupational therapy on board. End stage renal disease Nephrology consulted for dialysis Hyperlipidemia Continue on antilipid agents Dysphagia s/p EGD/PEG placement Nutrition consult DVT prophylaxis Lovenox History Interval history: Patient was seen and examined. Follow-up on current diagnosis. Overnight uneventful. Patient aphasic. Imaging, nursing note, chart, labs and old chart reviewed. Hospitalist Physical - Physical exam Narrative exam: General appearance: Present: no acute distress (non-verbal, left hemiplegia), other (confused ) - EENT Eyes: Present: PERRL ENT: hearing intact, other (right facial droop present) - Neck Neck: Present: supple - Respiratory Respiratory effort: normal Respiratory: bilateral: CTA - Cardiovascular Rhythm: regular Heart Sounds: Present: S1 & S2 - Extremities Extremity abnormal: other (Bilateral upper extremities decreased strength.Also bilateral LE unable to move bilateral legs against gravit) - Abdominal General gastrointestinal: soft, non-tender - Integumentary Integumentary: Present: clear, warm, dry - Psychiatric Psychiatric: other (impaired judjment) - Neurologic Neurologic: other (Bilateral upper extremities decreased strength.Also bilateral LE unable to move bilateral legs against gravit) - Allied Health Allied health notes reviewed: nursing - Constitutional Vitals: Temp Pulse Resp BP Pulse Ox 98.1 F 105 H 18 99/45 100 05/28/17 04:28 05/28/17 12:31 05/28/17 04:28 05/28/17 12:31 05/28/17 12:31 General appearance: Present: no acute distress (non-verbal, left hemiplegia), other (confused ) Results - Labs CBC & Chem 7: 05/26/17 05:39 05/28/17 05:39 Labs: Laboratory Last Values WBC 13.7 K/mm3 (4.5-11.0) H 05/26/17 05:39 RBC 3.60 M/mm3 (3.65-5.03) L 05/26/17 05:39 Hgb 9.5 gm/dl (10.1-14.3) L 05/26/17 05:39 Hct 31.2 % (30.3-42.9) 05/26/17 05:39 MCV 87 fl (79-97) 05/26/17 05:39 MCH 27 pg (28-32) L 05/26/17 05:39 MCHC 31 % (30-34) 05/26/17 05:39 RDW 21.8 % (13.2-15.2) H 05/26/17 05:39 Plt Count 138 K/mm3 (140-440) L 05/26/17 05:39 Lymph % (Auto) 3.1 % (13.4-35.0) L 05/26/17 05:39 Cocke % (Auto) 8.0 % (0.0-7.3) H 05/26/17 05:39 Eos % (Auto) 6.6 % (0.0-4.3) H 05/26/17 05:39 Baso % (Auto) 0.4 % (0.0-1.8) 05/26/17 05:39 Lymph # 0.4 K/mm3 (1.2-5.4) L 05/26/17 05:39 Cocke # 1.1 K/mm3 (0.0-0.8) H 05/26/17 05:39 Eos # 0.9 K/mm3 (0.0-0.4) H 05/26/17 05:39 Baso # 0.1 K/mm3 (0.0-0.1) 05/26/17 05:39 Seg Neutrophils % 81.9 % (40.0-70.0) H 05/26/17 05:39 Seg Neutrophils # 11.2 K/mm3 (1.8-7.7) H 05/26/17 05:39 PT 14.9 Sec. (12.2-14.9) 05/24/17 09:04 INR 1.11 (0.87-1.13) 05/24/17 09:04 APTT 36.1 Sec. (24.2-36.6) 05/24/17 09:04 Thrombin Time 16.5 Sec. (15.1-19.6) 05/24/17 09:04 Sodium 142 mmol/L (137-145) 05/28/17 05:39 Potassium 3.3 mmol/L (3.6-5.0) L 05/28/17 05:39 Chloride 96.2 mmol/L (98-107) L 05/28/17 05:39 Carbon Dioxide 20 mmol/L (22-30) L 05/28/17 05:39 Anion Gap 29 mmol/L 05/28/17 05:39 BUN 45 mg/dL (7-17) H 05/28/17 05:39 Creatinine 4.6 mg/dL (0.7-1.2) H 05/28/17 05:39 Estimated GFR 11 ml/min 05/28/17 05:39 BUN/Creatinine Ratio 10 % 05/28/17 05:39 Glucose 141 mg/dL (65-100) H 05/28/17 05:39 POC Glucose 178 (70-105) H 05/28/17 09:22 Calcium 8.2 mg/dL (8.4-10.2) L 05/28/17 05:39 Troponin T 4.590 ng/mL (0.00-0.029) H* 05/25/17 13:49 Triglycerides 95 mg/dL (2-149) 05/24/17 09:04 Cholesterol 82 mg/dL (50-199) 05/24/17 09:04 LDL Cholesterol Direct 27 mg/dL (50-130) L 05/24/17 09:04 HDL Cholesterol 36 mg/dL (40-59) L 05/24/17 09:04 Cholesterol/HDL Ratio 2.27 % 05/24/17 09:04
--- NOTE | 2017-05-28 14:09 | Discharge Summary ---
Providers - Providers Date of Admission: 05/24/17 11:39 Date of discharge: 05/28/17 Attending physician: SRI REED 05/24/17 11:39 Occupational Therapy Evaluate and Treat [CONS] Routine Comment: Reason For Exam: Neuro deficits Physical Therapy Evaluation and Treat [CONS] Routine Comment: Reason For Exam: Neuro deficits 05/24/17 11:40 Speech Therapy Evaluation and Treat [CONS] Routine Reason For Exam: swallow eval 05/24/17 14:34 Consult to Wound/ET Nurse [CONS] Routine Reason For Exam: wound eval 05/25/17 12:50 Consult to Physician [CONS] Routine Consulting Provider: JUVE CHARLES Reason For Exam: subacute CVA Place consult to:: Dr. Charles Notified:: Allie RN Was contact made?: Yes If yes, spoke with:: Dr. Charles Time called:: 13:59 05/25/17 14:27 Consult to Physician [CONS] Routine Consulting Provider: JUVE CHARLES Reason For Exam: multiple bilateral infarcts Place consult to:: Dr. Charles Notified:: Allie RN Was contact made?: Yes If yes, spoke with:: Duplicate consult. Dr. Charles is aware Time called:: 13:59 05/26/17 12:30 Consult to Physician [CONS] Routine Consulting Provider: RICHARD CROWLEY Reason For Exam: esrd needing hemodialysis today Place consult to:: office Notified:: yes Phone number called:: [phone] Was contact made?: Yes If yes, spoke with:: Gemma Time called:: 12:49 05/26/17 15:16 Consult to Physician [CONS] Routine Consulting Provider: TOMY MALIK Reason For Exam: PEG evaluation Place consult to:: Dr. Juan J Malik Notified:: Afia RN Phone number called:: Was contact made?: Yes If yes, spoke with:: Idania-office Time called:: 15:58 05/27/17 14:35 Consult to Dietitian/Nutrition [CONS] Routine Physician Instructions: Reason For Exam: Reason for Consult: Write/Manage Tube Feeding Primary care physician: [employer] Hospitalization Condition: Stable Hospital course: Patient is a 77 years old woman from the [facility] Resident with past medical history of HTN, DM, CVA with LHP, ESRD on HD, Dementia, Debility presents for [facility] complaints of confused and unable to speak. Acute ischemic infarct/CVA CT of the head shows right cerebellar hemisphere concerning for subacute ischemia and 2 suspicious area diminished attenuation in the left occipital lobe. MRI of the brain revealed multiple bilateral areas of subacute/acute infarcts. VL carotid no stenosis. Echocardiogram 02/2017 showed EF 55-60%, impaired relaxation. Continue on aspirin Continue on statins Frequent neuro checks. Neurology consult Physical therapy/occupational therapy on board. Supportive care Acute Encephalopathy Most likely due to acute and chronic CVA CT of the head shows right cerebellar hemisphere concerning for subacute ischemia and 2 suspicious area diminished attenuation in the left occipital lobe. Supportive care Elevated Troponin Cardiology consult 02/2017 showed EF 55-60%, impaired relaxation Due to Multiple co-morbid conditions the patient is not a candidate for invasive cardiac management per cardiology Hypertensive urgency/emergency Continue home antihypertensive medication. Gently IV hydralazine for SBP> 160 Closely monitor blood pressure Diabetes mellitus Accu-Chek before meals and at bedtime works on sliding scale insulin/Novolog Quadriparesis (muscle weakness) Secondary to acute and chronic CVA. Physical therapy/occupational therapy on board. End stage renal disease Nephrology consulted for dialysis Hyperlipidemia Continue on antilipid agents Dysphagia s/p EGD/PEG placement Nutrition consult DVT prophylaxis Lovenox Disposition: - TO HOME OR SELFCARE Time spent for discharge: 35 minutes Core Measure Documentation - Palliative Care Palliative Care/ Comfort Measures: Not Applicable - Core Measures Any of the following diagnoses?: stroke - VTE Discharge Requirements Deep Vein Thrombosis/Pulmonary Embolism Present on Admission: No Has pt received <5 days of overlap therapy or INR<2.0: No Anticoagulant overlap therapy prescribed at discharge: No Contraindication No Overlap Therapy order at DC: Not Indicated - Stroke Discharge Requirements Statin for LDL = or >70 mg/dl on DC: Yes Anticoag for atrial fib/atrial flutter: Not Applicable Antithrombotic for ischemic stroke: Yes Exam - Physical Exam Narrative exam: General appearance: Present: no acute distress (non-verbal, left hemiplegia), other (confused ) - EENT Eyes: Present: PERRL ENT: hearing intact, other (right facial droop present) - Neck Neck: Present: supple - Respiratory Respiratory effort: normal Respiratory: bilateral: CTA - Cardiovascular Rhythm: regular Heart Sounds: Present: S1 & S2 - Extremities Extremity abnormal: other (Bilateral upper extremities decreased strength.Also bilateral LE unable to move bilateral legs against gravit) - Abdominal General gastrointestinal: soft, non-tender - Integumentary Integumentary: Present: clear, warm, dry - Psychiatric Psychiatric: other (impaired judjment) - Neurologic Neurologic: other (Bilateral upper extremities decreased strength.Also bilateral LE unable to move bilateral legs against gravit) - Allied Health Allied health notes reviewed: nursing - Constitutional Vitals: Temp Pulse Resp BP Pulse Ox 98.1 F 105 H 18 99/45 100 05/28/17 04:28 05/28/17 12:31 05/28/17 04:28 05/28/17 12:31 05/28/17 12:31 Plan Diet: per dietitian instruction (Juanaasfredy Renal at 35mL/hr (goal rate) ) Follow up with: PRIMARY CARE, [Primary Care Provider] - 3-5 Days JUVE CHARLES MD [Staff Physician] - 7 Days Prescriptions: Aspirin [Aspirin BABY CHEW TAB] 81 mg PO QDAY #30 tab.chew Pantoprazole [Protonix] 40 mg PO QDAY #30 tablet
[2017-05-28 20:18] VITALS: BP 130/52
--- NOTE | 2017-05-31 13:06 | Vascular Lab Report ---
CAROTID DUPLEX STUDY: RIGHT PSVEDV CCA PROX:[id number] CCA DIST:[id number] ICA PROX:9822 ICA MID:9124 ICA DIST:8923 ECA: 132 VERT: 48 9 LEFT PSVEDV CCA PROX:7316 CCA DIST:5815 ICA PROX:50260 ICA MID:8923 ICA DIST:[id number] ECA: 101 VERT: 64 10 REASON FOR EXAM: Stroke. COMMENTS ON THE RIGHT: Doppler frequency analysis is consistent with 16 to 49 percent diameter reduction of the internal carotid artery. A moderate amount of plaque is seen. The common carotid artery is patent. The external carotid artery is patent. The vertebral artery has antegrade flow. COMMENTS ON THE LEFT: Doppler frequency analysis is consistent with 50 to 79 percent diameter reduction of the internal carotid artery. A large amount of mixed density plaque is seen. The common carotid artery is patent. The external carotid artery is patent. The vertebral artery has antegrade flow. IMPRESSION: Less than 50% diameter reduction in the internal carotid arteries bilaterally. Consider repeat carotid artery duplex in 12 months.
== END 2017-05-28 22:50 | DRG 64 ==
LOC: EDSEX → ED 08:14 → 4A 11:39
PROVIDERS: ADMIT Internal Medicine; ATTEND Internal Medicine
PROC: 5A1D70Z Performance of Urinary Filtration, Intermittent, Less than 6 Hours Per Day (ICD-10-PCS; principal; 2017-05-26)
PROC: 0DH63UZ Insertion of Feeding Device into Stomach, Percutaneous Approach (ICD-10-PCS; 2017-05-27)
DX: I63.9 Cerebral infarction, unspecified (principal); N18.6 End stage renal disease; G93.40 Encephalopathy, unspecified; G82.50 Quadriplegia, unspecified; I12.0 Hypertensive chronic kidney disease with stage 5 chronic kidney disease or end stage renal disease; I16.1 Hypertensive emergency; N25.81 Secondary hyperparathyroidism of renal origin; E11.22 Type 2 diabetes mellitus with diabetic chronic kidney disease; K21.9 Gastro-esophageal reflux disease without esophagitis; F32.9 Major depressive disorder, single episode, unspecified; G47.00 Insomnia, unspecified; I16.0 Hypertensive urgency; F01.50 Vascular dementia, unspecified severity, without behavioral disturbance, psychotic disturbance, mood disturbance, and anxiety; E78.5 Hyperlipidemia, unspecified; R13.12 Dysphagia, oropharyngeal phase; D63.1 Anemia in chronic kidney disease; Z88.0 Allergy status to penicillin; Z79.899 Other long term (current) drug therapy
CPT/HCPCS: 36415; 70450; 70544; 70551; 80048; 80061; 82962; 84484; 85025; 85610; 85670; 85730; 93005; 93010; 93880; 94760; G8978-GP; G8979-GP; G8986-GO; G8987-GO; G8988-GO; J1170; J1200; J1644; J1815; J2250; J3010; J3480; J7030